=== PATIENT | male | born 1970 | race Caucasian/White ===

== ENCOUNTER 2021-06-17 09:07 | Emergency (ER) | payer OTHER, SELFPAY ==
[2021-06-17 09:32] VITALS: BP 132/76; PULSE 94; RESP 18; TEMP 36.5; O2SAT 98; BMI 27.6
--- NOTE | 2021-06-17 10:11 | ED_ITS ---
HPI - Ear Problem General Chief complaint: Ear Problems Stated complaint: ear pain Time Seen by Provider: 06/17/21 09:46 Source: patient Mode of arrival: ambulatory History of Present Illness HPI Narrative: 50-year-old male with past medical history diabetes, bilateral ear surgery as a child insomnia, hyperlipidemia, smoker, presenting to the ED complaining of right ear pain, and feeling like its blocked x few days. Denies drainage from ear, fever, chills, sore throat, cough MD Complaint: ear pain Location: right ear Duration: constant Severity: mild Related Data Home Medications Medication Instructions Recorded Confirmed glimepiride 1 mg tablet 1 mg PO QAM 06/27/20 05/20/21 Previous Rx's Medication Instructions Recorded cholecalciferol (vitamin D3) 50 50 mcg PO DAILY #90 tab 10/05/20 mcg (2,000 unit) tablet (Vitamin D3) gabapentin 800 mg tablet 800 mg PO TID #270 tab 10/18/20 albuterol sulfate 90 mcg/actuation 2 puff PO QID PRN #8.5 g 04/07/21 aerosol inhaler metformin 500 mg tablet,extended 1,000 mg PO BID 30 Days #120 tab 04/24/21 release 24 hr atorvastatin 10 mg tablet 10 mg PO DAILY 90 Days #90 tab 05/14/21 oxycodone-acetaminophen 5 mg-325 See Rx Instructions PO .COMPLEX 05/31/21 mg tablet PRN 30 Days #10 tab amoxicillin 875 mg-potassium 1 tab PO Q12H 7 Days #14 tab 06/17/21 clavulanate 125 mg tablet (Augmentin) ofloxacin 0.3 % ear drops 10 drp OTIC (EARS) DAILY 7 Days ml 06/17/21 Allergies Allergy/AdvReac Type Severity Reaction Status Date / Time Motrin Allergy Unknown stomach Verified 05/20/21 14:31 pain ibuprofen [From MOTRIN] AdvReac Unknown ABD PAIN Verified 05/20/21 14:31 Review of Systems Review of Systems: Constitutional: No Fever, No Chills ENT/Mouth: + Ear Pain, No Nasal Congestion, No Sinus Pain, No Hoarseness, No sore throat, No Rhinorrhea, No Swallowing Difficulty Cardiovascular: No Chest Pain, No SOB Respiratory: No Cough, No Sputum Gastrointestinal: No Nausea, No Vomiting, No Diarrhea, No Abdominal pain Musculoskeletal: No joint pain, No Myalgias, No Joint Swelling Skin: No Skin Lesions, No rash Neuro: No Weakness Yes all other systems are reviewed and are negative [facility] Past Medical History Attestation statement: The following information was validated with the patient. Medical History Diabetes mellitus Insomnia Lumbar degenerative disc disease Mixed dyslipidemia Overweight (BMI 25.0-29.9) Right hydrocele Smoker Upper back pain on right side Vitamin D deficiency Surgical History History of ear surgery History of extraction of renal calculus History of hydrocelectomy History of surgery Family History Family History Father Medical history unknown Mother Cancer Social History Social History Housing: Apartment Alcohol intake: former Patient Tobacco Use Status: Current everyday Tobacco user Cigarette Packs Per Day: 1 Cigarettes Per Day: 20 Second Hand Smoke Exposure: Yes Advance Directives: No Advance Directives Information Provided: No service: No Current occupational status: retired Physical Exam Vital Signs: Vital Signs: Last Vital Signs Temp 97.7 F 06/17/21 09:32 Pulse 94 06/17/21 09:32 Resp 18 06/17/21 09:32 BP 132/76 06/17/21 09:32 Pulse Ox 98 06/17/21 09:32 BMI result Body Mass Index 27.6 Const: General: cooperative, healthy appearing and no acute distress Orientation/consciousness: patient oriented x3 Limitations: no limitations HENMT: Other: white debris in right ear canal with cerumen Head: Yes normal to inspection Ears: external ears normal, mastoids normal, external ear abnormal auricular tenderness on the right, TM abnormal dull on the right and unable to visualize TM on the right (Due to cerumen impaction) and on the left (Due to cerumen impaction) General nose exam: Normal external nose present Face and sinus: Yes normal facial exam Mouth: Normal oral and palatal mucosa present Throat: Yes posterior oropharynx normal, Yes tonsils normal, Yes uvula midline, No abnormal tonsil and No uvular edema Eyes: General: appearance normal, both eyes and all related structures EOM: EOMs intact bilaterally Neck: Neck: Yes normal visual inspection, Yes no lymphadenopathy, Yes no meningeal signs, Yes trachea midline and Yes supple Resp: Effort & Inspection: normal respiratory effort and no respiratory distress Auscultation: clear to auscultation bilaterally Cardio: Rate: regular rate Heart sounds: S1 normal heart sound present and S2 normal heart sound present Skin: Rashes: no rashes Wounds: no wounds Neuro: General: patient oriented x3 and no meningeal signs Gait exam (Neuro): Normal gait present Extrem: General: Yes normal to inspection MDM - Ear MDM Narrative Medical decision making narrative: 50-year-old male with past medical history diabetes, bilateral ear surgery as a child insomnia, hyperlipidemia, smoker, presenting to the ED complaining of right ear pain, and feeling like its blocked x few days. On exam vital signs stable, NAD/nontoxic appearing. Concern for otitis media and otitis externa versus fungal infection. Low concern for malign ant otitis externa. Mastoids normal Right TM irrigated Look treat with p.o. Augmentin and ofloxacin drops and have patient follow-up with ENT Medical Records Attestation: I reviewed the patient's medical records. Lab Data Attestation: I reviewed the patient's lab results. Discharge Plan Discharge Clinical Impression: Otitis media Qualifiers: Chronicity: acute Laterality: right Recurrence: not specified as recurrent Patient Disposition: Home, Self-Care Instructions: How to Use Ear Drops (ED), Ear Infection (ED) Additional Instructions: Augmentin is an oral antibiotic, please take as prescribed. In addition use ofloxacin antibiotic ear drops as prescribed. Follow-up with an ENT specialist. If your symptoms persist or worsen you have drainage from ear, develops fever or chills please return to the emergency department Prescriptions: New ofloxacin 0.3 % drops 10 drp otic (ears) DAILY 7 Days RF: 0 amoxicillin-pot clavulanate [Augmentin] 875-125 mg tablet 1 tab PO Q12H 7 Days Qty: 14 RF: 0 No Action cholecalciferol (vitamin D3) [Vitamin D3] 50 mcg (2,000 unit) tablet 50 mcg PO DAILY Qty: 90 RF: 2 gabapentin 800 mg tablet 800 mg PO TID Qty: 270 RF: 3 albuterol sulfate 90 mcg/actuation HFA aerosol inhaler 2 puff PO QID PRN (Reason: for wheezing) Qty: 8.5 RF: 3 metformin 500 mg tablet extended release 24 hr 1,000 mg PO BID 30 Days Qty: 120 RF: 3 atorvastatin 10 mg tablet 10 mg PO DAILY 90 Days Qty: 90 RF: 1 oxycodone-acetaminophen 5-325 mg tablet See Rx Instructions PO .COMPLEX PRN (Reason: pain) 30 Days Qty: 10 RF: 0 glimepiride 1 mg tablet 1 mg PO QAM RF: 0 Referrals: Cholo Chen [Physician] - 3 days Interventions: ED Discharge Assessment Last Done: 06/17/21 10:15
== END 2021-06-17 10:20 | disposition home or self-care (01) ==
PROVIDERS: Emergency Provider Emergency Medicine; PCP Internal Medicine
DX: H66.91 Otitis media, unspecified, right ear (principal); E11.9 Type 2 diabetes mellitus without complications; E78.5 Hyperlipidemia, unspecified; F17.200 Nicotine dependence, unspecified, uncomplicated; Z79.02 Long term (current) use of antithrombotics/antiplatelets; Z79.899 Other long term (current) drug therapy
CPT/HCPCS: 99283

== ENCOUNTER 2021-09-20 07:27 | Emergency (ER) | payer OTHER, SELFPAY ==
[2021-09-20 07:33] VITALS: BP 139/85; PULSE 106; RESP 18; TEMP 36.5; O2SAT 97; BMI 27.7
--- NOTE | 2021-09-20 08:19 | ED_ITS ---
HPI - Skin/Abscess/Foreign Bdy General Chief complaint: Skin/Abscess/Foreign Body Stated complaint: painful growth on back of head Time Seen by Provider: 09/20/21 08:05 Source: patient Mode of arrival: ambulatory Limitations: no limitations History of Present Illness HPI narrative: 50-year-old male history of diabetes brought in for possible abscess on the back of his scalp. Abscess on left side back of his scalp for the past 5 days, seen by his PCP started him on Bactrim, patient returned today for no improvement. No fever or chills. No neck stiffness, no photophobia. Related Data Home Medications Medication Instructions Recorded Confirmed glimepiride 1 mg tablet 1 mg PO QAM 06/27/20 09/17/21 Previous Rx's Medication Instructions Recorded cholecalciferol (vitamin D3) 50 50 mcg PO DAILY #90 tab 10/05/20 mcg (2,000 unit) tablet (Vitamin D3) gabapentin 800 mg tablet 800 mg PO TID #270 tab 10/18/20 atorvastatin 10 mg tablet 10 mg PO DAILY 90 Days #90 tab 05/14/21 ofloxacin 0.3 % ear drops 10 drp OTIC (EARS) DAILY 7 Days ml 06/17/21 metformin 500 mg tablet,extended 1,000 mg PO BID 30 Days #120 tab 07/24/21 release 24 hr nystatin 100,000 unit/gram topical 1 appl TOPICAL TID 10 Days #60 g 07/24/21 powder albuterol sulfate 90 mcg/actuation 2 puff PO QID PRN #8.5 g 08/08/21 aerosol inhaler oxycodone-acetaminophen 5 mg-325 See Rx Instructions PO .COMPLEX 08/30/21 mg tablet PRN 30 Days #10 tab sulfamethoxazole 800 1 tab PO Q12H 10 Days #20 tab 09/17/21 mg-trimethoprim 160 mg tablet (Bactrim DS) cephalexin 500 mg capsule 500 mg PO Q8H 7 Days #21 cap 09/20/21 Allergies Allergy/AdvReac Type Severity Reaction Status Date / Time No Known Allergies Allergy Verified 09/20/21 07:33 Review of Systems Review of Systems: All other systems are reviewed and are negative Constitutional: Reports as per HPI and Reports no additional constitutional complaints Eyes: Reports as per HPI and Reports no additional eye complaints Reports system reviewed and no additional complaints, except as documented Cardiovascular: Reports as per HPI and Reports no additional cardiovascular complaints Respiratory: Reports as per HPI and Reports no additional respiratory complaints Gastrointestinal: Reports as per HPI and Reports no additional gastrointestinal complaints Genitourinary: Reports no additional female genitourinary complaints Musculoskeletal: Reports no additional musculoskeletal complaints Skin/Breast: Reports system reviewed and no additional complaints, except as docu Psychiatric: Reports no additional psychiatric complaints Endocrine: Reports no additional endocrine complaints Hematologic/Lymphatic: Reports no additional hematologic/lymphatic complaints Allergic/Immunologic: Reports no additional allergic/immunologic complaints Reports system reviewed and no additional complaints, except as documented and Reports Abnormal speech present [facility] Past Medical History Medical History Diabetes mellitus Insomnia Lumbar degenerative disc disease Mixed dyslipidemia Overweight (BMI 25.0-29.9) Right hydrocele Smoker Upper back pain on right side Vitamin D deficiency Surgical History History of ear surgery History of extraction of renal calculus History of hydrocelectomy History of surgery Family History Family History Father Medical history unknown Mother Cancer Social History Social History Housing: Apartment Alcohol intake: former Patient Tobacco Use Status: Current everyday Tobacco user Cigarettes Per Day: 4 Second Hand Smoke Exposure: Yes Advance Directives: Yes Advance Directives Information Provided: Yes Advance Directives on File: No service: No Current occupational status: retired Physical Exam Vital Signs: Vital Signs: Last Vital Signs Temp 97.7 F 09/20/21 07:33 Pulse 106 H 09/20/21 07:33 Resp 18 09/20/21 07:33 BP 139/85 09/20/21 07:33 Pulse Ox 97 09/20/21 07:33 BMI result Body Mass Index 27.7 Vital signs have been reviewed as appeared to be correct. Blood pressure normal. Heart rate elevated. Respiration rate normal. Temperature normal. Oxygen saturation normal. Appearance: Alert. Oriented X3. No acute distress. Head: Normal external exam. Normocephalic. Atraumatic. No Contreras signs noted. No raccoon eyes noted Eyes: PERRLA. EOMI. Conjunctiva and sclera normal. Eyelids normal. ENT: TM's Normal. Pharynx normal. Uvula midline. Moist mucous membranes. No trismus noted. No drooling noted. No muffled voice noted. Neck: Normal inspection. Neck supple. FROM. No adenopathy. Thyroid Normal. No meningeal signs. No neck mass noted. CVS: Normal heart rate and rhythm. Heart sound normal. No murmurs noted. Pulses normal throughout. Respiratory: No respiratory distress. Painless inspiration. Breath sounds normal. No wheezes/rales/rhonchi noted. Chest nontender. No accessory muscle usage noted or decreased air movement noted. Abdomen: Soft and nontender. Bowel sounds normal in all 4 quadrants. No distention noted. No organomegaly noted. No visible injury noted. Back: No CVA tenderness. Full range of motion noted. Skin: Skin warm and dry. Normal skin color. 3 x 2 cm area of fluctuation at the left occipital area of the scalp. No discharge, no cellulitis. Extremities: No lower extremity edema. Extremities exhibit normal range of motion. Extremities nontender. Neuro: Oriented X 3. Cranial nerve exam: II-XII are grossly intact No motor deficit. No sensory deficit. Reflexes normal. Course Course Course Narrative: Left scalp occipital abscess. Status post I&D, continue with Bactrim and will add Keflex. Procedures Abscess I/D Site: scalp (Left occipital) Side (if applicable): left Local Anesthetic: lidocaine 1% Amount of anesthesia used (mL): 5 Amount of fluid expressed (mL): 5 Sent for culture/gram staining?: No Irrigation: No Packing used?: none Discharge Plan Discharge Clinical Impression: Abscess Patient Disposition: Home, Self-Care Instructions: Abscess Incision and Drainage (DC) Additional Instructions: Return to the emergency department in 2 days to recheck your abscess and wound. Prescriptions: New cephalexin 500 mg capsule 500 mg PO Q8H 7 Days Qty: 21 0RF No Action cholecalciferol (vitamin D3) [Vitamin D3] 50 mcg (2,000 unit) tablet 50 mcg PO DAILY Qty: 90 2RF gabapentin 800 mg tablet 800 mg PO TID Qty: 270 3RF atorvastatin 10 mg tablet 10 mg PO DAILY 90 Days Qty: 90 1RF metformin 500 mg tablet extended release 24 hr 1,000 mg PO BID 30 Days Qty: 120 3RF Rx Instructions: 2 tablets Orally twice a day albuterol sulfate 90 mcg/actuation HFA aerosol inhaler 2 puff PO QID PRN (Reason: for wheezing) Qty: 8.5 3RF oxycodone-acetaminophen 5-325 mg tablet See Rx Instructions PO .COMPLEX PRN (Reason: pain) 30 Days Qty: 10 0RF Rx Instructions: 1 tablet orally 1 to 2 times a day as needed only for severe pain ofloxacin 0.3 % drops 10 drp otic (ears) DAILY 7 Days 0RF glimepiride 1 mg tablet 1 mg PO QAM 0RF nystatin 100,000 unit/gram powder 1 appl topical TID 10 Days Qty: 60 3RF sulfamethoxazole-trimethoprim [Bactrim DS] 800-160 mg tablet 1 tab PO Q12H 10 Days Qty: 20 0RF Referrals: Aung Astorga MD [Primary Care Provider] - 2 days
== END 2021-09-20 09:37 | disposition home or self-care (01) ==
PROVIDERS: Emergency Provider Emergency Medicine; PCP Internal Medicine
DX: L02.811 Cutaneous abscess of head [any part, except face] (principal); E11.9 Type 2 diabetes mellitus without complications
CPT/HCPCS: 10060; 99283; 99284

== ENCOUNTER 2022-01-26 07:00 | Emergency (ER) | payer OTHER, SELFPAY ==
[2022-01-26 07:57] VITALS: BP 120/80; PULSE 98; RESP 17; TEMP 36.7; O2SAT 96; BMI 29.1
--- NOTE | 2022-01-26 08:56 | ED.GENADULT ---
HPI - General Adult General Chief complaint: Skin/Abscess/Foreign Body Stated complaint: Lump under both armpits Time Seen by Provider: 01/26/22 08:37 Source: patient Mode of arrival: ambulatory Limitations: no limitations History of Present Illness HPI narrative: 51-year-old male presents to ED for bilateral axilla red painful lumps for the past 2-3 days. Patient states no fever, chills, drainage, or any recent trauma to the area. Denies any IV drug use. Related Data Home Medications Medication Instructions Recorded Confirmed glimepiride 1 mg tablet 1 mg PO QAM 06/27/20 09/17/21 Previous Rx's Medication Instructions Recorded gabapentin 800 mg tablet 800 mg PO TID #270 tabs 10/18/20 ofloxacin 0.3 % ear drops 10 drp otic (ears) DAILY 7 days 06/17/21 nystatin 100,000 unit/gram topical 1 appl topical TID 10 days #60 07/24/21 powder grams sulfamethoxazole 800 1 tab PO Q12H 10 days #20 tabs 09/17/21 mg-trimethoprim 160 mg tablet (Bactrim DS) cholecalciferol (vitamin D3) 50 50 mcg PO DAILY #90 tabs 10/10/21 mcg (2,000 unit) tablet (Vitamin D3) metformin 500 mg tablet,extended 1,000 mg PO BID 30 days #120 tabs 10/16/21 release 24 hr atorvastatin 10 mg tablet 10 mg PO DAILY #90 tabs 11/04/21 albuterol sulfate 90 mcg/actuation 2 puff PO QID PRN for wheezing 11/19/21 aerosol inhaler #8.5 grams cephalexin 500 mg capsule 500 mg PO Q8H 7 days #21 caps 12/25/21 oxycodone-acetaminophen 5 mg-325 See Rx Instructions PO .COMPLEX 12/27/21 mg tablet PRN pain 30 days #10 tabs cephalexin 500 mg capsule 500 mg PO QID 7 days #28 caps 01/26/22 doxycycline hyclate 100 mg capsule 100 mg PO BID 7 days #14 caps 01/26/22 Allergies Allergy/AdvReac Type Severity Reaction Status Date / Time ibuprofen [From Motrin IB] Allergy Mild Nausea and Verified 12/25/21 15:08 Vomiting Review of Systems Review of Systems: Bilateral axillary red lumps. Yes all other systems are reviewed and are negative PMFSH Past Medical History Medical History Diabetes mellitus Insomnia Lumbar degenerative disc disease Mixed dyslipidemia Overweight (BMI 25.0-29.9) Right hydrocele Smoker Upper back pain on right side Vitamin D deficiency Surgical History History of ear surgery History of extraction of renal calculus History of hydrocelectomy History of surgery Family History Family History Father Medical history unknown Mother Cancer Social History Social History Housing: Apartment Alcohol intake: former Patient Tobacco Use Status: Current everyday Tobacco user Cigarettes Per Day: 4 Second Hand Smoke Exposure: Yes Advance Directives: No Advance Directives Information Provided: Yes service: No Current occupational status: retired Physical Exam ED Vital Signs: Vital Signs - 24 hr 01/26/22 07:57 Temperature 98.0 F Pulse Rate 98 Respiratory Rate 17 Blood Pressure 120/80 Pulse Oximetry 96 Oxygen Delivery Method Nasal Cannula BMI result Body Mass Index 29.1 Const General: cooperative, healthy appearing, comfortable, no acute distress, well developed, alert, awake and Physically active Orientation/consciousness: patient oriented x3 HENMT Head: Yes normal to inspection, Yes No palpable skull fracture present, Yes normocephalic, Yes atraumatic and No abrasion Eyes General: appearance normal, both eyes and all related structures Neck Neck: Yes normal visual inspection, Yes full ROM, Yes no lymphadenopathy, Yes no meningeal signs, Yes trachea midline, Yes supple, No anterior neck swelling and No tender Chest Chest palpation & inspection: normal inspection of the chest and normal palpation of entire chest wall Chest/axillae images: 1. Red tender non fluctuant mass. Negative for pus drainage or foul odor. Bedside ultrasound shows very small pus collection. 2. Red tender nonfluctuant mass. Negative for pus drainage or foul odor. Bedside ultrasound shows no pus collection but more cellulitic wall changes. Resp Effort & Inspection: normal respiratory effort and able to speak in complete sentences Auscultation: clear to auscultation bilaterally Cardio Jugular venous distension: no JVD Heart sounds: S1 normal heart sound present and S2 normal heart sound present GI Inspection: Yes normal to inspection and No abdominal wall ecchymosis Palpation (GI): Soft to palpation, not firm, nontender, no guarding and not rigid General: No CVA tenderness and Yes no CVA tenderness Back/Spine/Pelvis Back: no CVA tenderness, No CVA tenderness and No back tenderness Skin General skin exam: no rashes or lesions noted and elasticity normal Neuro General: patient oriented x3, gait normal, no meningeal signs and CN's II-XI intact bilaterally Cranial nerves: Yes CN's II-XII intact bilaterally Extrem General: Yes normal to inspection and Yes full ROM Psych Appearance: grossly normal, well kempt and not disheveled Course Course Course Narrative: Early abscess/cellulitis. Reevaluation(s) Reevaluation #1: Presently no indication for left axillary cellulitis and early abscess. For right axillary early abscess due to being small patient preferred to be treated with antibiotics. Patient informed to be compliant with antibiotics and recommend warm compress on both axillary for Zeeshan a day for 15 minutes. Time: 09:05 Medical Decision Making [facility] Narrative Medical decision making narrative: early abscess/cellulitis Discharge Plan Discharge Clinical Impression: Abscesses of both axillae Patient Disposition: Home, Self-Care Instructions: Abscess (ED) Additional Instructions: presently he had no incision and drainage definitely needed. Recommend warm compress 4 times a day for 15 minutes in both axillary and also antibiotics. Return to the ED immediately for increased swelling, increase redness, worsening pain, profuse drainage, foul odor, intractable fever, chills, shortness of breath, chest pain, or any other concerning symptoms. Please follow up with your PCP. Prescriptions: New cephalexin 500 mg capsule 500 mg PO QID 7 Days Qty: 28 0RF doxycycline hyclate 100 mg capsule 100 mg PO BID 7 Days Qty: 14 0RF No Action gabapentin 800 mg tablet 800 mg PO TID Qty: 270 3RF cholecalciferol (vitamin D3) [Vitamin D3] 50 mcg (2,000 unit) tablet 50 mcg PO DAILY Qty: 90 2RF metformin 500 mg tablet extended release 24 hr 1,000 mg PO BID 30 Days Qty: 120 3RF Rx Instructions: 2 tablets Orally twice a day atorvastatin 10 mg tablet 10 mg PO DAILY Qty: 90 0RF albuterol sulfate 90 mcg/actuation HFA aerosol inhaler 2 puff PO QID PRN (Reason: for wheezing) Qty: 8.5 3RF oxycodone-acetaminophen 5-325 mg tablet See Rx Instructions PO .COMPLEX PRN (Reason: pain) 30 Days Qty: 10 0RF Rx Instructions: 1 tablet orally 1 to 2 times a day as needed only for severe pain ofloxacin 0.3 % drops 10 drp otic (ears) DAILY 7 Days 0RF glimepiride 1 mg tablet 1 mg PO QAM nystatin 100,000 unit/gram powder 1 appl topical TID 10 Days Qty: 60 3RF sulfamethoxazole-trimethoprim [Bactrim DS] 800-160 mg tablet 1 tab PO Q12H 10 Days Qty: 20 0RF cephalexin 500 mg capsule 500 mg PO Q8H 7 Days Qty: 21 0RF Stand Alone Forms: Work/School Release Interventions: ED Discharge Assessment Last Done: 01/26/22 09:52 Discharge Date/Time: 01/26/22 09:53 Print Language: Mongolian
== END 2022-01-26 09:53 | disposition home or self-care (01) ==
PROVIDERS: Emergency Provider Emergency Medicine; PCP Internal Medicine
DX: L02.411 Cutaneous abscess of right axilla (principal); L02.412 Cutaneous abscess of left axilla; Z79.899 Other long term (current) drug therapy; Z87.891 Personal history of nicotine dependence
CPT/HCPCS: 99283

== ENCOUNTER 2022-09-16 07:38 | Outpatient (REF) | payer OTHER, SELFPAY ==
[2022-09-16 07:51] LABS: MANUAL DIFF FLAG NO
[2022-09-16 08:17] LABS: Basophils Absolute Auto 0.1 X10*3/uL (0.0-0.2); Basophils Percent Auto 0.3 % (0-2); Eosinophils Absolute Auto 0.2 X10*3/uL (0.0-0.4); Eosinophils Percent Auto 1.3 % (0-4); Hemoglobin 13.8 g/dl (14.0-18.0); Imm Gran Abs Auto 0.08 X10*3/uL (0.00-0.03); Imm Gran Pct Auto 0.4 % (0.0-0.4); Lymphocytes Percent Auto 16.3 % (20-40); Mean Corpuscular HGB Conc 32.9 g/dl (31.0-36.0); Mean Corpuscular Hemoglobin 26.7 pg (27.0-33.0); Mean Corpuscular Volume 81.4 fL (80.0-98.0); Mean Platelet Volume 9.6 fL (9.4-12.4); Monocytes Absolute Auto 1.4 X10*3/uL (0.1-1.2); Monocytes Percent Auto 7.5 % (2-11); Neutrophils Absolute Auto 13.8 x10*3/uL (2.0-8.3); Neutrophils Percent Auto 74.2 % (45-73); Platelet Count 373 X10*3/uL (160-400); Red Blood Count 5.16 X10*6/uL (4.60-5.80); White Blood Count 18.6 X10*3/uL (4.8-10.8)
[2022-09-16 08:27] LABS: Appearance Urine Clear; Color Urine Yellow; Glucose Urine UA Negative (Negative); Leukocyte Esterase Urine Negative (Negative); Nitrite Urine Negative (Negative); Specific Gravity - Urine 1.025 (1.005-1.025); Urine Blood Negative (Negative); Urine Ketones Trace mg/dL (Negative); Urine Protein Negative (Neg-Trace)
[2022-09-16 08:47] LABS: Alanine Aminotransferase 15 U/L (0-40); Albumin Level 4.2 g/dL (3.5-5.0); Alkaline Phosphatase 70 U/L (39-117); Anion Gap 15 (12-20); Aspartate Amino Transferase 15 U/L (5-37); Bilirubin Total 0.3 mg/dL (0.0-1.0); Blood Urea Nitrogen 14 mg/dL (9-16); Calcium 9.2 mg/dL (8.4-10.2); Carbon Dioxide 22 mmol/L (22-29); Chloride 107 mmol/L (96-108); Cholesterol 158 mg/dL; Estimated Glomerular Filt Rate > 60; Glucose Fasting 158 mg/dL (60-99); HDL Cholesterol 24 mg/dL; LDL Cholesterol Calculated 105 mg/dl; Potassium 4.5 mmol/L (3.3-5.1); Sodium 139 mmol/L (135-145); Triglycerides 147 mg/dL
[2022-09-16 08:53] LABS: Creatinine Urine 173.71 mg/dL
[2022-09-16 09:03] LABS: TSH reflex Free T4 0.72 uIU/mL (0.32-4.0); Vitamin D 25-OH Total 35.7 ng/mL (>30)
== END 2022-09-16 07:39 | disposition home or self-care (01) ==
LOC: HO.LAB 07:38
PROVIDERS: PCP Internal Medicine; Visit Provider Internal Medicine
DX: E78.00 Pure hypercholesterolemia, unspecified (principal); E55.9 Vitamin D deficiency, unspecified; R30.0 Dysuria; E11.9 Type 2 diabetes mellitus without complications; I10 Essential (primary) hypertension
CPT/HCPCS: 36415; 80053; 80061; 81003; 82043; 82306; 84443; 85025

== ENCOUNTER 2022-10-19 14:23 | Emergency (ER) | payer OTHER, SELFPAY ==
[2022-10-19 14:25] VITALS: BP 124/73; PULSE 104; RESP 18; TEMP 36.4; O2SAT 96; BMI 27.1
--- NOTE | 2022-10-19 14:30 | ED.GENADULT ---
HPI - General Adult General Chief complaint: Ear Problems Stated complaint: L ear pain Time Seen by Provider: 10/19/22 14:30 Source: patient Mode of arrival: ambulatory Limitations: no limitations History of Present Illness HPI narrative: 51 yold male presents to the ED for left ear pain Related Data Previous Rx's Medication Instructions Recorded gabapentin 800 mg tablet 800 mg PO TID #270 tabs 10/18/20 nystatin 100,000 unit/gram topical 1 appl topical TID 10 days #60 07/24/21 powder grams albuterol sulfate 90 mcg/actuation 2 puff PO QID PRN for wheezing 11/19/21 aerosol inhaler #8.5 grams blood sugar diagnostic #100 ea 04/18/22 blood-glucose meter #1 ea 04/18/22 lancets 30 gauge (BD Ultra-Fine II #100 ea 04/18/22 Lancets) cholecalciferol (vitamin D3) 50 50 mcg PO DAILY #90 tabs 04/24/22 mcg (2,000 unit) tablet (Vitamin D3) sitagliptin phosphate 100 mg 100 mg PO DAILY #90 tabs 08/08/22 tablet (Januvia) glimepiride 2 mg tablet 2 mg PO QAM 90 days #90 tabs 09/11/22 oxycodone-acetaminophen 5 mg-325 See Rx Instructions PO .COMPLEX 09/25/22 mg tablet PRN pain 30 days #10 tabs metformin 500 mg tablet,extended 1,000 mg PO BID 30 days #120 tabs 10/13/22 release 24 hr atorvastatin 10 mg tablet 10 mg PO DAILY #90 tabs 10/16/22 [id number] 3.3 4 drp otic (ear) left QID 10 days 10/19/22 mg-3 mg-10 mg-0.5 mg/mL ear #10 mL drops,susp (Cortisporin-TC) Allergies Allergy/AdvReac Type Severity Reaction Status Date / Time ibuprofen [From Motrin IB] Allergy Mild Nausea and Verified 09/11/22 09:21 Vomiting Review of Systems Review of Systems: Left ear pain Yes all other systems are reviewed and are negative PMFSH Past Medical History Medical History Diabetes mellitus Insomnia Lumbar degenerative disc disease Mixed dyslipidemia Overweight (BMI 25.0-29.9) Right hydrocele Smoker Upper back pain on right side Vitamin D deficiency Surgical History History of ear surgery History of extraction of renal calculus History of hydrocelectomy History of surgery Family History Family History Father Medical history unknown Mother Cancer Social History Social History Housing: Apartment Alcohol intake: former Patient Tobacco Use Status: Current everyday Tobacco user Tobacco use type: Cigarette Cigarettes Per Day: 4 e-Cigarette/Vaping Use: Never Used Second Hand Smoke Exposure: Yes Advance Directives: No Advance Directives Information Provided: No service: No Current occupational status: retired Cognitive needs: No Hearing needs: No Vision needs: No Physical Exam ED Vital Signs: Vital Signs - 24 hr 10/19/22 14:25 Temperature 97.6 F Pulse Rate 104 H Respiratory Rate 18 Blood Pressure 124/73 Pulse Oximetry 96 Oxygen Delivery Method Room Air BMI result Body Mass Index 27.1 Course Course Course Narrative: Left ear exam shows otits externa Medical Decision Making Medical Decision Making [facility] Narrative: 51 yold male presents to the ED for left ear pain Discharge Plan Discharge Clinical Impression: Otitis externa Patient Disposition: Home, Self-Care Instructions: Otitis Externa (ED), Otitis Externa (DC) Additional Instructions: Presents to the ED for worsening left ear pain, ear discharge, headache, redness/swelling in front/behind ear, weakness, or any other concerning symptoms. please follow up with pCP. Prescriptions: New Cortisporin-TC 3.3-3-10-0.5 mg/mL drops,suspension 4 drp otic (ear) left QID 10 Days Qty: 10 0RF No Action gabapentin 800 mg tablet 800 mg PO TID Qty: 270 3RF albuterol sulfate 90 mcg/actuation HFA aerosol inhaler 2 puff PO QID PRN (Reason: for wheezing) Qty: 8.5 3RF (DME) blood sugar diagnostic Strip See Rx Instructions .ROUTE .MEDSUPPLY Qty: 100 1RF Rx Instructions: bid (DME) blood-glucose meter Kit See Rx Instructions .ROUTE .MEDSUPPLY Qty: 1 0RF Rx Instructions: test twice a day (DME) lancets [BD Ultra-Fine II Lancets] 30 gauge misc See Rx Instructions .ROUTE .MEDSUPPLY Qty: 100 1RF Rx Instructions: twice a day cholecalciferol (vitamin D3) [Vitamin D3] 50 mcg (2,000 unit) tablet 50 mcg PO DAILY Qty: 90 2RF Januvia 100 mg tablet 100 mg PO DAILY Qty: 90 1RF oxycodone-acetaminophen 5-325 mg tablet See Rx Instructions PO .COMPLEX PRN (Reason: pain) 30 Days Qty: 10 0RF Rx Instructions: 1 tablet orally 1 to 2 times a day as needed only for severe pain metformin 500 mg tablet extended release 24 hr 1,000 mg PO BID 30 Days Qty: 120 3RF Rx Instructions: 2 tablets Orally twice a day atorvastatin 10 mg tablet 10 mg PO DAILY Qty: 90 0RF nystatin 100,000 unit/gram powder 1 appl topical TID 10 Days Qty: 60 3RF glimepiride 2 mg tablet 2 mg PO QAM 90 Days Qty: 90 1RF Stand Alone Forms: Work/School Release Interventions: ED Discharge Assessment Last Done: 10/19/22 15:14 Discharge Date/Time: 10/19/22 15:15 Print Language: Grenadian
== END 2022-10-19 15:15 | disposition home or self-care (01) ==
PROVIDERS: Emergency Provider Emergency Medicine; PCP Internal Medicine
DX: H60.92 Unspecified otitis externa, left ear (principal); H92.02 Otalgia, left ear; Z79.899 Other long term (current) drug therapy; F17.210 Nicotine dependence, cigarettes, uncomplicated; Z71.6 Tobacco abuse counseling
CPT/HCPCS: 99282

== ENCOUNTER 2023-06-09 09:07 | Outpatient (AMB) | payer OTHER, SELFPAY ==
--- NOTE | 2023-06-09 09:58 | AM.OFFWIN_ITS ---
Intake Vital Signs 06/09/23 10:04 Height 5 ft 11 in Weight 200 lb BMI 27.9 BP 112/60 Blood Pressure Location Lt brachial Position Sitting Pulse 91 Pulse Source Pulse Oximeter Temp 97.7 F Temp Source Oral Pulse Oximetry (%) 96 Oxygen Delivery Method Room Air Intake Visit Reasons: Est/ear pain(lobby) Intake Note: Pt is here today c/o Rt ear pain x3days Patient Tobacco Use Status: Current everyday Tobacco user Allergies ibuprofen [From Motrin IB] Allergy (Mild, Verified 06/09/23 10:28) Nausea and Vomiting Medication List - Last Reconciled 06/09/23 by Michael Currie MD albuterol sulfate 90 mcg/actuation 2 puffs PO QID PRN atorvastatin 10 mg PO DAILY blood sugar diagnostic bid blood-glucose meter test twice a day cholecalciferol (vitamin D3) (Vitamin D3) 50 mcg PO DAILY gabapentin 800 mg PO TID glimepiride 2 mg PO QAM 90 days lancets (BD Ultra-Fine II Lancets) twice a day metformin ER 1,000 mg (2 x 500 mg) PO BID nystatin 1 appl topical TID 10 days oxycodone-acetaminophen 5-325 mg 1 tablet orally 1 to 2 times a day as needed only for severe pain 30 days sitagliptin phosphate (Januvia) 100 mg PO DAILY HPI Est/ear pain(lobby) HPI Details 52-year-old male presents to the office for a sick visit. Patient is complaining of right ear pain. Throbbing in nature. No discharge from the ear. Low-grade fever. Patient reports he has had 3 ear infections this year. [facility]LY [facility] Medical History Diabetes mellitus Insomnia Lumbar degenerative disc disease Mixed dyslipidemia Overweight (BMI 25.0-29.9) Right hydrocele Smoker Upper back pain on right side Vitamin D deficiency Surgical History History of ear surgery History of extraction of renal calculus History of hydrocelectomy History of surgery Family History Father Medical history unknown Mother Cancer Housing: Apartment Alcohol intake: former Patient Tobacco Use Status: Current everyday Tobacco user Tobacco use type: Cigarette Cigarettes Per Day: 7 e-Cigarette/Vaping Use: Never Used Second Hand Smoke Exposure: Yes service: No Current occupational status: retired Cognitive needs: No Hearing needs: No Vision needs: No Physical Exam Vital Signs: Last Vital Signs Temp 97.7 F 06/09/23 10:04 Pulse 91 06/09/23 10:04 BP 112/60 06/09/23 10:04 Pulse Ox 96 06/09/23 10:04 Oxygen Delivery Method Room Air 06/09/23 10:04 BMI result Body Mass Index 27.9 Const General: cooperative and healthy appearing Nutritional Appearance: well nourished Orientation/consciousness: patient oriented x3 Limitations: no limitations HEENT Other: Right ear: Ear canal is congested, wax is present. Tympanic membrane is red. Head: Yes normal to inspection Eyes General: appearance normal, both eyes and all related structures Neck Neck: Yes normal visual inspection Chest Chest palpation & inspection: normal palpation of entire chest wall Resp Effort & Inspection: normal respiratory effort Neuro General: patient oriented x3 Assessment & Plan Assessment & Plan (1) Otitis media of right ear: Code(s): H66.91 - Otitis media, unspecified, right ear Qualifiers: Otitis media type: serous Chronicity: acute Recurrence: non-recurrent Qualified Code(s): H65.01 - Acute serous otitis media, right ear Plan: Antibiotic and meloxicam called in. Patient was advised to follow-up with PCP to get a ENT appointment to determine if there is a cause for his recurrent ear infections. Coding Level of Care Code Est Pt Level 3 (71319) Diagnoses Non-recurrent acute serous otitis media of right ear H65.01 Otitis media type: serous Chronicity: acute Recurrence: non-recurrent
[2023-06-09 10:04] VITALS: BP 112/60; PULSE 91; TEMP 36.5; O2SAT 96; BMI 27.9
== END 2023-06-09 10:55 | disposition home or self-care (01) ==
PROVIDERS: PCP Internal Medicine; Visit Provider Internal Medicine
DX: H65.01 Acute serous otitis media, right ear (principal)
CPT/HCPCS: 99213

== ENCOUNTER 2023-06-11 09:25 | Outpatient (AMB) | payer OTHER, SELFPAY ==
[2023-06-11 09:28] VITALS: BP 118/70; PULSE 96; O2SAT 94; BMI 27.5
--- NOTE | 2023-06-11 09:28 | MHC.PC.OV ---
Vital Signs 06/11/23 09:28 Height 5 ft 11 in Weight 197 lb 4 oz BMI 27.5 BP 118/70 Blood Pressure Location Lt brachial Position Sitting Pulse 96 Pulse Oximetry (%) 94 Oxygen Delivery Method Room Air Intake Visit Reasons: Ear pain Intake Note: Pt is here for Ear pain, ongoign pain since Thursday. Pt went to Urgent care the follow day. Pt was given Azithromycin and Meloxicam. Pay Per Click Strategist Required: No Accompanied by: Self / Same As Patient Allergies ibuprofen [From Motrin IB] Allergy (Mild, Verified 06/11/23 09:28) Nausea and Vomiting Tobacco use date assessed: 09/03/22 Dental Screening Dental Screen Date: 06/11/23 Did you have a dental visit in the last 12 months?: No Did you have a dental problem in the last 6 months where you did not have access to dental care?: No Was dental information given to patient?: Patient has dentist HPI HPI Comments History of Present Illness Details 52-year-old male past medical history significant for type 2 diabetes mellitus, hyperlipidemia, lumbar spondylosis. Patient of Dr. Astorga. Patient presents today for ear pain, review of the notes patient was seen in the walk-in clinic on 06/09/2023 for right ear pain x3 days patient was noted to have right otitis media discharged home on antibiotic treatment. Of note patient reports he had 4 recurrent ear infections over the last year and was recommended to follow-up with PCP for referral to ENT. Patient reports diagnosed deaf as a child and he had multiple ear surgeries. [facility]LY [facility] Medical History (Updated 06/11/23 @ 10:00 by TOM Hair) Otitis externa Overweight (BMI 25.0-29.9) Smoker Insomnia Right hydrocele Vitamin D deficiency Lumbar degenerative disc disease Mixed dyslipidemia Diabetes mellitus Upper back pain on right side Surgical History History of surgery History of hydrocelectomy History of ear surgery History of extraction of renal calculus Family History Father Medical history unknown Mother Cancer Social History Housing: Apartment Alcohol intake: former Patient Tobacco Use Status: Current everyday Tobacco user Tobacco use type: Cigarette Cigarettes Per Day: 7 e-Cigarette/Vaping Use: Never Used Second Hand Smoke Exposure: Yes service: No Current occupational status: retired Cognitive needs: No Hearing needs: No Vision needs: No Questionnaire Thrive Questionnaire Date Thrive assessed: 09/11/22 ED-7 AMB Questionnaire ED-7 Date ED - 7 assessed: 09/11/22 Source: Developed by Drs. Travis Davis, Nirmala Prieto, Tirso Quintana and colleagues, with an educational dino from [employer]. Review of Systems Const Denies chills, Denies fatigue, Denies fever(s) and Denies poor appetite Eyes Denies no additional complaints ENT Reports otalgia, Denies nasal congestion, Denies sinus pain and Denies sinus pressure Card Denies chest pain, Denies rapid heart rate and Denies dyspnea Resp Denies cough and Denies dyspnea Neuro Denies confusion Psych Denies confusion Endo Denies fatigue Physical exam (Primary Care) Vital Signs: Last Vital Signs Pulse 96 06/11/23 09:28 BP 118/70 06/11/23 09:28 Pulse Ox 94 06/11/23 09:28 Oxygen Delivery Method Room Air 06/11/23 09:28 BMI result Body Mass Index 27.5 Tobacco/Smoking Status: Tobacco use Status Tobacco use date assessed 09/03/22 06/11/23 09:37 Patient Tobacco Use Status Current everyday Tobacco 06/11/23 09:37 Tobacco use type Cigarette 06/11/23 09:37 e-Cigarette/Vaping Use Never Used 06/11/23 09:37 Thrive Assessment: Date of Thrive Assessment Date Thrive assessed 09/11/22 06/11/23 09:37 Const General: No confusion Orientation/consciousness: No confusion HENMT Head: Yes normocephalic and Yes atraumatic Eyes Conjunctivae: conjunctivae normal Chest Chest palpation & inspection: normal inspection of the chest Resp Effort & Inspection: normal respiratory effort Auscultation: clear to auscultation bilaterally, no crackles, no rhonchi and no wheezes Cardio Rate: regular rate Rhythm: regular rhythm Heart sounds: S1 normal heart sound present and S2 normal heart sound present GI Inspection: Yes normal to inspection Neuro General: No confusion Extrem General: No edema Office Procedures Flu Questionnaire Does the patient have a severe egg allergy?: No Does the patient have severe life threatening allergies?: No Does the patient have a fever or illness today?: No Has the patient ever had Guillain-Lata[place] Syndrome?: No Has the patient ever had any past reaction to a flu shot?: No Immunizations flu vacc [id number] 6mos up(PF) 60 mcg(15 mcgx4)/0.5 mL IM syringe Performing Provider: TOM Hair Performing Location: [facility] Administered by: JULES Cooper on 06/11/23 09:45 Dose Route Admin Location Dispensed Lot Number Expiration Date NDC Security Operations Analyst 0.5 mL IM Left Deltoid 0.5 mL [id number] 01/10/24 32437-029-35 [employer] VIS Given Date VIS Provided VIS Publication Date 06/11/23 Single Vaccine 21 Eligibility Eligibility Date Funding Source Not [facility] Eligible 06/11/23 Private Assessment and Plan Assessment & Plan (1) Otitis media of right ear: Code(s): H66.91 - Otitis media, unspecified, right ear Qualifiers: Otitis media type: serous Chronicity: acute Recurrence: non-recurrent Qualified Code(s): H65.01 - Acute serous otitis media, right ear Plan: Patient advised to complete full course of antibiotic treatment. Given patient has had 3 prior right ear infections, for right ear infections including most recent. Will refer to ENT for further evaluation. (2) Otitis externa: Code(s): H60.90 - Unspecified otitis externa, unspecified ear Plan: Patient also noted to have canal inflammation with discharge will send Ciprodex for GTT is b.i.d. x7 days and to right ear to treat of otitis externa. Plan Keep scheduled follow-up with PCP. Orders: Orders Influenza [id number] Immunization Today Z23 - Encounter for immunization Referrals Ear/Nose/Throat Referral H66.91 - Otitis media, unspecified, right ear Medications: New ciprofloxacin-dexamethasone 0.3-0.1 % Right ear 4 drps otic (ears) BID 7 days 7.5 mL 0RF H60.90 - Unspecified otitis externa, unspecified ear Coding Level of Care Code Est Pt Level 3 (46585) Diagnoses Non-recurrent acute serous otitis media of right ear H65.01 Otitis media type: serous Chronicity: acute Recurrence: non-recurrent Otitis externa H60.90
== END 2023-06-11 11:01 | disposition home or self-care (01) ==
PROVIDERS: PCP Internal Medicine; Visit Provider Nurse Practitioner Family
DX: H65.01 Acute serous otitis media, right ear (principal); H60.91 Unspecified otitis externa, right ear; Z23 Encounter for immunization
CPT/HCPCS: 90471; 90686; 99213

== ENCOUNTER 2023-07-23 09:40 | Outpatient (AMB) | payer OTHER, SELFPAY ==
--- NOTE | 2023-07-23 09:51 | MHC.PC.OV ---
Vital Signs 07/23/23 09:52 Height 5 ft 11 in Weight 197 lb 8 oz BMI 27.5 BP 136/80 Blood Pressure Location Lt brachial Position Sitting Pulse 99 Pulse Source Pulse Oximeter Pulse Oximetry (%) 97 Oxygen Delivery Method Room Air Intake Visit Reasons: Physical exam Automatic Presser Required: No Accompanied by: Self / Same As Patient Allergies ibuprofen [From Motrin IB] Allergy (Mild, Verified 07/23/23 11:03) Nausea and Vomiting Medication List - Last Reconciled 07/23/23 by Aung Astorga MD albuterol sulfate 90 mcg/actuation 2 puffs PO QID PRN atorvastatin 10 mg PO DAILY blood sugar diagnostic bid blood-glucose meter test twice a day cholecalciferol (vitamin D3) (Vitamin D3) 50 mcg PO DAILY gabapentin 800 mg PO TID glimepiride 2 mg PO QAM 90 days lancets (BD Ultra-Fine II Lancets) twice a day meloxicam 15 mg PO DAILY metformin ER 1,000 mg (2 x 500 mg) PO BID nystatin 1 appl topical TID 10 days sitagliptin phosphate (Januvia) 100 mg PO DAILY Tobacco use date assessed: 07/23/23 Dental Screening Dental Screen Date: 07/23/23 Did you have a dental visit in the last 12 months?: No Did you have a dental problem in the last 6 months where you did not have access to dental care?: No Was dental information given to patient?: No HPI Physical exam HPI Details Patient comes in today for his annual physical examination States that he currently feels okay Was having some recurrent right ear infection over the past couple of months - went to the walk-in and then was also seen here by [facility] in May 2023 for the same issue States that he was referred to ENT then but he has not yet heard back from ENT States that his right ear presently feels much better although he still has some mild disomfort in the ear occasionally He denies any fever, headaches or dizziness Denies any chest pains, no SOB No nausea/vomiting, no abdominal pain No change in bowel habits noted Denies any acute urinary symptoms Still has recurrent low back pain and joint pains but states that these are mostly manageable and his current meds help keep them in check Has no follow up labs done recently He has also never had a screening colonoscopy done before - was referred for colonoscopy in 2021 but states that he never had it scheduled PFSH Medical History (Updated 07/23/23 @ 11:24 by Aung Astorga MD) Otitis externa Overweight (BMI 25.0-29.9) Smoker Insomnia Right hydrocele Vitamin D deficiency Lumbar degenerative disc disease Mixed dyslipidemia Diabetes mellitus Surgical History History of surgery History of hydrocelectomy History of ear surgery History of extraction of renal calculus Family History Father Medical history unknown Mother Cancer Social History Housing: Apartment Alcohol intake: former Patient Tobacco Use Status: Current everyday Tobacco user Tobacco use type: Cigarette Cigarettes Per Day: 7 e-Cigarette/Vaping Use: Never Used Second Hand Smoke Exposure: Yes service: No Current occupational status: retired Cognitive needs: No Hearing needs: No Vision needs: No Questionnaire PHQ-9 Over the last 2 weeks, how often have you been bothered by any of the following problems? 1. Little interest or pleasure in doing things: not at all 2. Feeling down, depressed, or hopeless: not at all 3. Trouble falling or staying asleep, or sleeping too much: not at all 4. Feeling tired or having little energy: not at all 5. Poor appetite or overeating: not at all 6. Feeling bad about yourself - or that you are a failure or have let yourself or your family down: not at all 7. Trouble concentrating on things, such as reading the newspaper or watching television: not at all 8. Moving or speaking so slowly that other people could have noticed. Or the opposite - being so fidgety or restless that you have been moving around a lot more than usual: not at all 9. Thoughts that you would be better off or of hurting yourself in some way: not at all Total score: 0 Depression Screening Interpretation: Negative Depression Screening Done: Yes 80156 - PHQ-9 Billing: Yes Source: Developed by Drs. Travis Davis, Nirmala Prieto, Tirso Quintana and colleagues, with an educational dino from [employer]. Thrive Questionnaire Date Thrive assessed: 07/23/23 I am a: Patient What is your living situation today?: I have a steady place to live Within the past 12 months, did the food you bought not last and you didn't have the money to get more?: Never true Within the past 12 months, did you worry whether your food would run out before you got money to buy more?: Never true Do you have trouble paying for medicines?: No Do you have trouble getting transportation to medical appointments?: No Do you have trouble paying your heating and electricity bill?: No Do you have trouble taking care of your child, family member or friend?: No Do you have trouble with day-to-day activities such as bathing, preparing meals, shopping, managing finances, etc.?: No Are you currently unemployed and looking for a job?: No Are you interested in more education?: No Please select the resources that you would like help with: None Currently or been in a relationship where the following occur: no concerns reported AUDIT C Alcohol Use Questionnaire (AUDIT-C) 1. How often do you have a drink containing alcohol?: Never 3. How often do you have six or more drinks on one occasion?: Never Total Score: 0 Score Reviewed/Action Taken: Yes ED-7 AMB Questionnaire ED-7 Date ED - 7 assessed: 07/23/23 Feeling nervous, anxious, or on edge: 0 = Not at all Not being able to stop or control worryin = Not at all Worrying too much about different things: 0 = Not at all Trouble relaxin = Not at all Being so restless that it is hard to sit still: 0 = Not at all Becoming easily annoyed or irritable: 0 = Not at all Feeling afraid as if something awful might happen: 0 = Not at all Total ED-7 score (0-4 normal; 5-9 mild; 10-14 moderate; 15-21 severe): 0 Source: Developed by Drs. Travis Davis, Nirmala Prieto, Tirso Quintana and colleagues, with an educational dino from [employer]. Review of Systems Const Denies chills, Denies fatigue, Denies fever(s), Denies headache(s), Denies malaise and Denies weakness Eyes Reports blurry vision (in both eyes), Denies change in vision, Denies irritation and Denies itchy eyes ENT Denies dysphagia, Denies dizziness, Denies ear discharge, Denies otalgia (but (+) occasional discomfort in the right ear), Denies headache(s), Denies nasal congestion, Denies neck pain, Denies odynophagia and Denies sore throat Card Denies chest pain, Denies rapid heart rate, Denies irregular heart rhythm, Denies palpitations and Denies dyspnea Resp Denies chest congestion, Denies cough, Denies dyspnea and Denies wheezing GI Denies abdominal pain, Denies bloating, Denies constipation, Denies dysphagia, Denies heartburn, Denies diarrhea, Denies nausea, Denies odynophagia and Denies vomiting Denies hematuria, Denies difficulty urinating, Denies dysuria, Denies urinary frequency and Denies urinary urgency Musc Reports back pain (recurrent, over the lower back), Denies arthralgias, Denies joint swelling, Denies muscle weakness and Denies neck pain Skin/Breast Denies change in pigmentation, Denies lesions, Denies rash and Denies unusual bruising Neuro Denies dizziness, Denies headache(s), Denies paresthesias and Denies weakness Endo Denies fatigue and Denies palpitations Aller/Immun Denies itchy eyes and Denies wheezing Physical exam (Primary Care) Vital Signs: Last Vital Signs Pulse 99 07/23/23 09:52 BP 136/80 07/23/23 09:52 Pulse Ox 97 07/23/23 09:52 Oxygen Delivery Method Room Air 07/23/23 09:52 BMI result Body Mass Index 27.5 Tobacco/Smoking Status: Tobacco use Status Tobacco use date assessed 07/23/23 07/23/23 09:53 Patient Tobacco Use Status Current everyday Tobacco 07/23/23 09:53 Tobacco use type Cigarette 07/23/23 09:53 e-Cigarette/Vaping Use Never Used 07/23/23 09:53 PHQ-9: PHQ-9 Score PHQ-9: Total score 0 07/23/23 10:23 Depression Screening Interpretation: Negative Thrive Assessment: Date of Thrive Assessment Date Thrive assessed 07/23/23 07/23/23 09:53 Currently or been in a relationship where the following occur: no concerns reported Const General: no acute distress, alert and awake Orientation/consciousness: patient oriented x3 HENMT Head: Yes normocephalic and Yes atraumatic Ears: external ears normal, TM's normal bilaterally and EAC's normal (but (+) minimal cerumen noted in the right ear canal) General nose exam: No nasal discharge present Face and sinus: Yes normal facial exam and Yes sinuses nontender Teeth and gingiva: dentition normal Throat: Yes posterior oropharynx normal and Yes tonsils normal (no TP congestion) Eyes Eyelids: Yes eyelids normal Conjunctivae: conjunctivae normal Pupils: Equal, round and reactive pupils present EOM: EOMs intact bilaterally Neck Neck: Yes no lymphadenopathy and Yes supple Thyroid: Thyroid normal Resp Auscultation: clear to auscultation bilaterally, no rales and no wheezes Cardio Rate: regular rate Rhythm: regular rhythm Heart sounds: no murmurs GI Palpation (GI): Soft to palpation, nontender and No hepatosplenomegaly present Auscultation: normal bowel sounds General: Yes no CVA tenderness Back/Spine/Pelvis Back: no CVA tenderness Thoracic/Lumbar Spine: lumbar spinal tenderness Skin Lesions: no lesions Rashes: no rashes Neuro General: patient oriented x3, moves all extremities, no focal motor deficits and CN's II-XI intact bilaterally Cranial nerves: Yes Equal, round and reactive pupils present Cognition (Neuro): normal cognition Gait exam (Neuro): Normal gait present Extrem General: Yes no clubbing, cyanosis or edema Assessment and Plan Assessment & Plan (1) Annual physical exam: Code(s): Z00.00 - Encounter for general adult medical examination without abnormal findings Plan: Check labs YESICA He has never had a screening colonoscopy done (was referred back in 2020 but he never got it scheduled) (2) Diabetes mellitus: Code(s): E11.9 - Type 2 diabetes mellitus without complications Qualifiers: Diabetes mellitus type: type 2 Diabetes mellitus skilled nursing insulin use: without adjunct faculty for medical terminology use Diabetes mellitus complication status: with hyperglycemia Qualified Code(s): E11.65 - Type 2 diabetes mellitus with hyperglycemia Plan: In-office HgbA1c was at 7.6% when it was last checked in December 2022 (was at 9.5% previous to that) - goal is <7.0% Will recheck his HgbA1c and FBS with his other labs YESICA Reinforced diabetic diet Continue Metformin ER 1000 mg BID, Januvia 100 mg QD and Glimepiride 2 mg Q AM Will also refer him for his diabetic eye exam - states that he has not had one done in years (3) Mixed dyslipidemia: Code(s): E78.2 - Mixed hyperlipidemia Plan: Will recheck his fasting lipids YESICA Reinforced low cholesterol diet Reinforced his increased risk of coronary or CV event more than average due to his diabetes and comorbidities Continue Atorvastatin 10 mg QD Will recheck his labs and fasting lipids again in 3 months for follow up (4) Vitamin D deficiency: Code(s): E55.9 - Vitamin D deficiency, unspecified Plan: Continue Vitamin D3 2000 units QD Will recheck Vitamin D level for follow up (5) Lumbar degenerative disc disease: Code(s): M51.36 - Other intervertebral disc degeneration, lumbar region Plan: Reinforced activity and weight-lifting restrictions Continue Gabapentin 800 mg TID and Percocet 5-325 mg QD PRN only for severe pain (6) Insomnia: Code(s): G47.00 - Insomnia, unspecified Qualifiers: Insomnia type: unspecified Qualified Code(s): G47.00 - Insomnia, unspecified Plan: Sleep hygiene reinforced (7) Smoker: Code(s): F17.200 - Nicotine dependence, unspecified, uncomplicated Plan: Counseled again on smoking cessation (8) Overweight (BMI 25.0-29.9): Code(s): E66.3 - Overweight Plan: Reinforced diet/exercise as tolerated/lose weight (9) Colon cancer screening: Code(s): Z12.11 - Encounter for screening for malignant neoplasm of colon Plan: Will refer him again for screening colonoscopy - has never had one done in the past Plan Have advised him that based on the info in his chart, he is to call Dr. Chen's office on his own to schedule his appt with ENT - have printed out referral with Dr. Chen's office phone number and handed form to patient and he is encouraged to call Dr. Chen's office YESICA Follow up in 3 months Orders: Orders Complete Blood Count Auto Diff Today E11.9 - Type 2 diabetes mellitus without complications, Z00.00 - Encounter for general adult medical examination without abnormal findings Lipid Panel Today E78.00 - Pure hypercholesterolemia, unspecified, Z00.00 - Encounter for general adult medical examination without abnormal findings Hemoglobin A1c Today E11.9 - Type 2 diabetes mellitus without complications, Z00.00 - Encounter for general adult medical examination without abnormal findings Microalbumin, Random (w Creat) Today E11.9 - Type 2 diabetes mellitus without complications, Z00.00 - Encounter for general adult medical examination without abnormal findings Lipid Panel 3 Months E78.00 - Pure hypercholesterolemia, unspecified Hemoglobin A1c 3 Months E11.9 - Type 2 diabetes mellitus without complications Comprehensive [place]. Panel Fast Today E78.00 - Pure hypercholesterolemia, unspecified, Z00.00 - Encounter for general adult medical examination without abnormal findings UA CC w/rflx Micro + Cult Today R30.0 - Dysuria, Z00.00 - Encounter for general adult medical examination without abnormal findings TSH reflex Free T4 Today E78.00 - Pure hypercholesterolemia, unspecified, Z00.00 - Encounter for general adult medical examination without abnormal findings Vitamin D 25-OH Total Today E55.9 - Vitamin D deficiency, unspecified, Z00.00 - Encounter for general adult medical examination without abnormal findings Prostate Specific Antigen Scr Today Z00.00 - Encounter for general adult medical examination without abnormal findings Comprehensive [place]. Panel Fast 3 Months E78.00 - Pure hypercholesterolemia, unspecified Referrals Gastroenterology Referral Z12.11 - Encounter for screening for malignant neoplasm of colon Ophthalmology Referral E11.9 - Type 2 diabetes mellitus without complications Coding Level of Care Code Est Pt Prev Care 40-64y(23714) Diagnoses Annual physical exam Z00.00 Type 2 diabetes mellitus with hyperglycemia, without long-term current use of insulin E11.65 Diabetes mellitus type: type 2 Diabetes mellitus adjunct faculty for medical terminology insulin use: without skilled nursing use Diabetes mellitus complication status: with hyperglycemia Mixed dyslipidemia E78.2 Vitamin D deficiency E55.9 Lumbar degenerative disc disease M51.36 Insomnia, unspecified type G47.00 Insomnia type: unspecified Smoker F17.200 Overweight (BMI 25.0-29.9) E66.3 Colon cancer screening Z12.11
[2023-07-23 09:52] VITALS: BP 136/80; PULSE 99; O2SAT 97; BMI 27.5
== END 2023-07-23 11:15 | disposition home or self-care (01) ==
PROVIDERS: PCP Internal Medicine; Visit Provider Internal Medicine
DX: Z00.00 Encounter for general adult medical examination without abnormal findings (principal); E11.65 Type 2 diabetes mellitus with hyperglycemia; E78.2 Mixed hyperlipidemia; E55.9 Vitamin D deficiency, unspecified; M51.36 Other intervertebral disc degeneration, lumbar region; G47.00 Insomnia, unspecified; F17.200 Nicotine dependence, unspecified, uncomplicated; E66.3 Overweight; Z12.11 Encounter for screening for malignant neoplasm of colon
CPT/HCPCS: 99396

== ENCOUNTER 2023-10-01 17:19 | Inpatient (IN) | payer OTHER, SELFPAY ==
--- NOTE | 2023-10-01 17:47 | ED_ITS ---
HPI - General Adult General Chief complaint: Psychiatric Symptoms Stated complaint: crisis eval suicidal Time Seen by Provider: 10/01/23 17:32 Source: patient, RN notes reviewed and old records reviewed Mode of arrival: ambulatory Limitations: no limitations History of Present Illness HPI narrative: 52-year-old male presents for evaluation of depression and suicidal ideation. Patient reports increasing depression for the last 2 days He reports his symptoms have been worsening he is now feeling suicidal He does not have a plan He reports he takes medication for depression but does not know the name. He reports he has been compliant with it He denies any somatic complaints He denies any inciting incidents Denies any alcohol or drug abuse Related Data Home Medications Medication Instructions Recorded Confirmed bupropion HCl 300 mg 24 hr tablet, 300 mg PO DAILY 10/01/23 10/01/23 extended release duloxetine 30 mg capsule,delayed 30 mg PO BID 10/01/23 10/01/23 release trazodone 100 mg tablet 100 mg PO BEDTIME 10/01/23 10/01/23 Previous Rx's Medication Instructions Recorded blood sugar diagnostic #100 ea 04/18/22 blood-glucose meter #1 ea 04/18/22 lancets 30 gauge (BD Ultra-Fine II #100 ea 04/18/22 Lancets) sitagliptin phosphate 100 mg 100 mg PO DAILY #90 tabs 02/04/23 tablet (Januvia) cholecalciferol (vitamin D3) 50 50 mcg PO DAILY #90 tabs 03/11/23 mcg (2,000 unit) tablet (Vitamin D3) glimepiride 2 mg tablet 2 mg PO QAM 90 days #90 tabs 03/11/23 metformin 500 mg tablet,extended 1,000 mg (2 x 500 mg) PO BID #360 06/18/23 release 24 hr tabs albuterol sulfate 90 mcg/actuation 2 puff PO QID PRN for wheezing 09/30/23 aerosol inhaler #8.5 grams oxycodone-acetaminophen 5 mg-325 See Rx Instructions PO .COMPLEX 09/30/23 mg tablet PRN pain 30 days #10 tabs Allergies Allergy/AdvReac Type Severity Reaction Status Date / Time ibuprofen [From Motrin IB] Allergy Mild Nausea and Verified 07/23/23 11:03 Vomiting Review of Systems 2 Constitutional: Constitutional: Denies body ache(s), Denies chills and Denies fever(s) ENT: Denies sore throat Cardiovascular: Cardiovascular: Denies chest pain Respiratory: Respiratory: Denies cough Gastrointestinal: Gastrointestinal: Denies abdominal pain and Denies vomiting Musculoskeletal: Musculoskeletal: Denies back pain Integumentary/Breasts: Skin/Breast: Denies rash Psychiatric: Psychiatric: Reports anxiety, Reports depression and Reports suicidal ideation FORMERLY [facility], [facility] Past Medical History Medical History (Updated 10/01/23 @ 17:51 by Rashi Samano) Otitis externa Overweight (BMI 25.0-29.9) Smoker Insomnia Right hydrocele Vitamin D deficiency Lumbar degenerative disc disease Mixed dyslipidemia Diabetes mellitus Surgical History History of surgery History of hydrocelectomy History of ear surgery History of extraction of renal calculus Family History Family History Father Medical history unknown Mother Cancer Social History Social History Housing: Apartment Alcohol intake: former Patient Tobacco Use Status: Current everyday Tobacco user Tobacco use type: Cigarette Cigarettes Per Day: 7 e-Cigarette/Vaping Use: Never Used Second Hand Smoke Exposure: Yes Advance Directives: No Advance Directives Information Provided: No service: No Current occupational status: retired Cognitive needs: No Hearing needs: No Vision needs: No Physical Exam ED Vital Signs: Vital Signs - 24 hr 10/01/23 18:09 10/02/23 02:45 10/02/23 07:50 Temperature 98.3 F 98.4 F 97.6 F Pulse Rate 110 H 89 92 Respiratory Rate 14 16 17 Blood Pressure 159/75 H 116/70 115/74 Pulse Oximetry 96 99 96 Oxygen Delivery Method Room Air Room Air Room Air BMI result Body Mass Index 31.3 Const General: healthy appearing, comfortable, no acute distress, alert and awake Nutritional Appearance: well nourished Orientation/consciousness: patient oriented x3 HENMT Head: Yes normocephalic and Yes atraumatic Eyes Eyelids: Yes eyelids normal Conjunctivae: conjunctivae normal Sclerae: sclerae normal Corneas: corneas normal Pupils: Equal, round and reactive pupils present EOM: EOMs intact bilaterally Neck Neck: Yes full ROM Resp Effort & Inspection: normal respiratory effort, able to speak in complete sentences and not labored Cardio Rate: regular rate Rhythm: regular rhythm GI Inspection: No distended Palpation (GI): Soft to palpation, not firm, nontender, no guarding and not rigid Skin General skin exam: elasticity normal Neuro General: patient oriented x3 Cranial nerves: Yes Equal, round and reactive pupils present and Yes Bilaterally intact EOM present Cognition (Neuro): normal cognition Extrem Other: Moving all extremities well without any obvious deformities Course Reevaluation(s) Reevaluation #1: observation continued no acute events VS stable inpatient bed search Time: Medications Administered Generic Name Dose Route Start Last Admin Trade Name Freq PRN Reason Stop Dose Admin Bupropion HCl 300 mg 10/02/23 09:00 10/02/23 08:06 Bupropion Hcl Xl 300 Mg Tab.Er.24h PO 300 mg DAILY BLESSING Administration Duloxetine HCl 30 mg 10/02/23 09:00 10/02/23 08:04 Duloxetine Hcl 30 Mg Capsule.Dr PO 30 mg BID BLESSING Administration Glipizide 5 mg 10/02/23 09:00 10/02/23 08:04 Glipizide 5 Mg Tablet PO 5 mg DAILY BLESSING Administration Metformin HCl 1,000 mg 10/02/23 08:00 10/02/23 08:04 Metformin Hcl Er 500 Mg Tab.Er.24h PO 1,000 mg BIDWM BLESSING Administration Sitagliptin Phosphate 100 mg 10/02/23 09:00 10/02/23 08:04 Sitagliptin Phosphate 100 Mg Tablet PO 100 mg DAILY BLESSING Administration Trazodone HCl 100 mg 10/01/23 23:30 10/02/23 01:56 Trazodone Hcl 100 Mg Tablet PO Not Given BEDTIME BLESSING Vitamin D 50 mcg 10/02/23 09:00 10/02/23 08:04 Cholecalciferol (Vitamin D3) 25 Mcg Tablet PO 50 mcg DAILY BLESSING Administration Medical Decision Making Medical Decision Making MDM Narrative: 52-year-old male presents for evaluation depression with suicidal ideation. Plan for medical clearance with basic labs and a urine/tox screen. He has no somatic complaints and an unremarkable physical exam. Plan for care team evaluation once medically cleared Differential Diagnosis Differential Diagnoses: The differential diagnosis associated with the presentation includes Depression Suicidal ideation Anxiety Medication noncompliance Major depressive episode Bipolar disorder Lab Data 10/01/23 19:13 10/01/23 19:13 Labs: Lab Results 10/01/23 10/02/23 10/02/23 Range/Units 19:13 02:39 06:32 WBC 11.7 H (4.8-10.8) X10*3/uL RBC 4.95 (4.60-5.80) X10*6/uL Hgb 13.2 L (14.0-18.0) g/dl Hct 39.5 L (42.0-52.0) % MCV 79.8 L (80.0-98.0) fL MCH 26.7 L (27.0-33.0) pg MCHC 33.4 (31.0-36.0) g/dl RDW 14.3 (11.0-16.0) % Plt Count 362 (160-400) X10*3/uL MPV 9.2 L (9.4-12.4) fL Immature Gran % (Auto) 0.4 (0.0-0.4) % Neut % (Auto) 64.1 (45-73) % Lymph % (Auto) 21.7 (20-40) % [place] % (Auto) 11.9 H (2-11) % Eos % (Auto) 1.4 (0-4) % Baso % (Auto) 0.5 (0-2) % Lymph # (Auto) 2.5 (1.2-4.9) X10*3/uL [place] # (Auto) 1.4 H (0.1-1.2) X10*3/uL Eos # (Auto) 0.2 (0.0-0.4) X10*3/uL Baso # (Auto) 0.1 (0.0-0.2) X10*3/uL Abs Immat Gran (auto) 0.05 H (0.00-0.03) X10*3/uL Absolute Neuts (auto) 7.5 (2.0-8.3) x10*3/uL Absolute Nucleated RBC 0.000 (0.0-0.012) X10*3/uL Nucleated RBC % (auto) 0.0 (0.0-0.2) /100WBC Sodium 140 (135-145) mmol/L Potassium 3.7 (3.3-5.1) mmol/L Chloride 104 (96-108) mmol/L Carbon Dioxide 25 (22-29) mmol/L Anion Gap 15 (12-20) BUN 14 (9-16) mg/dL Creatinine 0.95 (0.5-1.4) mg/dL Estim Creat Clear Calc 97.7 Estimated GFR > 60 Random Glucose 205 H (60-115) mg/dL Calcium 9.5 (8.4-10.2) mg/dL Magnesium 1.8 (1.6-2.6) mg/dL Total Bilirubin 0.2 (0.0-1.0) mg/dL AST 11 (5-37) U/L ALT 13 (0-40) U/L Alkaline Phosphatase 75 (39-117) U/L Total Protein 7.4 (6.5-8.0) g/dL Albumin 3.9 (3.5-5.0) g/dL Urine Color Yellow Urine Appearance Clear Urine pH 6.0 (5.0-9.0) Ur Specific [place] 1.025 (1.005-1.025) Urine Protein Negative (Neg-Trace) mg/dL Urine Glucose (UA) Negative (Negative) mg/dL Urine Ketones Negative (Negative) mg/dL Urine Blood Negative (Negative) Urine Nitrite Negative (Negative) Ur Leukocyte Esterase Negative (Negative) Urine Opiates Screen Not Detected (Not Detect) Urine Fentanyl Screen Not Detected (Not Detect) Ur Barbiturates Screen Not Detected (Not Detect) Ur Phencyclidine Scrn Not Detected (Not Detect) Ur Amphetamines Screen Not Detected (Not Detect) U Benzodiazepines Scrn Not Detected (Not Detect) Urine Cocaine Screen Not Detected (Not Detect) U Marijuana (THC) Screen Not Detected (Not Detect) Ethyl Alcohol < 10 mg/dL COVID-19 ([facility]) Negative (Negative) COVID-19 Clin Com See Note Discharge Plan Discharge Clinical Impression: Depression with suicidal ideation Patient Disposition: Still a Patient Prescriptions: No Action (DME) blood sugar diagnostic Strip See Rx Instructions .ROUTE .MEDSUPPLY Qty: 100 1RF Rx Instructions: bid (DME) blood-glucose meter Kit See Rx Instructions .ROUTE .MEDSUPPLY Qty: 1 0RF Rx Instructions: test twice a day (DME) lancets [BD Ultra-Fine II Lancets] 30 gauge misc See Rx Instructions .ROUTE .MEDSUPPLY Qty: 100 1RF Rx Instructions: twice a day Januvia 100 mg tablet 100 mg PO DAILY Qty: 90 1RF cholecalciferol (vitamin D3) [Vitamin D3] 50 mcg (2,000 unit) tablet 50 mcg PO DAILY Qty: 90 2RF glimepiride 2 mg tablet 2 mg PO QAM 90 Days Qty: 90 1RF metformin 500 mg tablet extended release 24 hr 1,000 mg PO BID Qty: 360 1RF albuterol sulfate 90 mcg/actuation HFA aerosol inhaler 2 puff PO QID PRN (Reason: for wheezing) Qty: 8.5 3RF oxycodone-acetaminophen 5-325 mg tablet See Rx Instructions PO .COMPLEX PRN (Reason: pain) 30 Days Qty: 10 0RF Rx Instructions: 1 tablet orally 1 to 2 times a day as needed only for severe pain bupropion HCl 300 mg tablet extended release 24 hr 300 mg PO DAILY duloxetine 30 mg capsule,delayed release(DR/EC) 30 mg PO BID trazodone 100 mg tablet 100 mg PO BEDTIME Interventions: Arrington-Suicide Risk Severity Scale Last Done: 10/01/23 17:55
[2023-10-01 17:53] VITALS: BMI 31.3
--- NOTE | 2023-10-01 17:57 | PC.NURSE ---
patient belongings in locker 3, calm and cooperative and changed into hospital attire. states he has housing court tomorrow and will need the number to call them in the morning. offering no other complaints at this time.
[2023-10-01 18:09] VITALS: BP 159/75; PULSE 110; RESP 14; TEMP 36.8; O2SAT 96
--- NOTE | 2023-10-01 19:10 | PC.NURSE ---
patient appears to remain asleep at present respirations are even and unlabored patient appears in no distress.
[2023-10-01 19:17] LABS: MANUAL DIFF FLAG NO
[2023-10-01 19:19] LABS: Basophils Absolute Auto 0.1 X10*3/uL (0.0-0.2); Basophils Percent Auto 0.5 % (0-2); Eosinophils Absolute Auto 0.2 X10*3/uL (0.0-0.4); Eosinophils Percent Auto 1.4 % (0-4); Hematocrit 39.5 % (42.0-52.0); Hemoglobin 13.2 g/dl (14.0-18.0); Imm Gran Abs Auto 0.05 X10*3/uL (0.00-0.03); Imm Gran Pct Auto 0.4 % (0.0-0.4); Lymphocytes Absolute Auto 2.5 X10*3/uL (1.2-4.9); Lymphocytes Percent Auto 21.7 % (20-40); Mean Corpuscular HGB Conc 33.4 g/dl (31.0-36.0); Mean Corpuscular Hemoglobin 26.7 pg (27.0-33.0); Mean Corpuscular Volume 79.8 fL (80.0-98.0); Mean Platelet Volume 9.2 fL (9.4-12.4); Monocytes Absolute Auto 1.4 X10*3/uL (0.1-1.2); Monocytes Percent Auto 11.9 % (2-11); Neutrophils Absolute Auto 7.5 x10*3/uL (2.0-8.3); Neutrophils Percent Auto 64.1 % (45-73); Platelet Count 362 X10*3/uL (160-400); Red Blood Count 4.95 X10*6/uL (4.60-5.80); Red Cell Distribution Width 14.3 % (11.0-16.0); White Blood Count 11.7 X10*3/uL (4.8-10.8)
[2023-10-01 19:47] LABS: Alanine Aminotransferase 13 U/L (0-40); Albumin Level 3.9 g/dL (3.5-5.0); Alkaline Phosphatase 75 U/L (39-117); Anion Gap 15 (12-20); Aspartate Amino Transferase 11 U/L (5-37); Bilirubin Total 0.2 mg/dL (0.0-1.0); Blood Urea Nitrogen 14 mg/dL (9-16); Calcium 9.5 mg/dL (8.4-10.2); Carbon Dioxide 25 mmol/L (22-29); Chloride 104 mmol/L (96-108); Creatinine Clr Calc Pharmacy 97.7; Estimated Glomerular Filt Rate > 60; Ethanol < 10 mg/dL; Glucose Random 205 mg/dL (60-115); Magnesium 1.8 mg/dL (1.6-2.6); Potassium 3.7 mmol/L (3.3-5.1); Sodium 140 mmol/L (135-145); Total Protein 7.4 g/dL (6.5-8.0)
[2023-10-02 02:45] VITALS: BP 116/70; PULSE 89; RESP 16; TEMP 36.9; O2SAT 99
[2023-10-02 02:52] LABS: Appearance Urine Clear; Color Urine Yellow; Glucose Urine UA Negative (Negative); Leukocyte Esterase Urine Negative (Negative); Nitrite Urine Negative (Negative); Specific Gravity - Urine 1.025 (1.005-1.025); Urine Blood Negative (Negative); Urine Ketones Negative (Negative); Urine Protein Negative (Neg-Trace)
[2023-10-02 03:03] LABS: Amphetamine Screen Urine Not Detected (Not Detect); Barbiturates, Urine Not Detected (Not Detect); Benzodiazepines Screen Urine Not Detected (Not Detect); Cannabinoid Screen Urine Not Detected (Not Detect); Cocaine Screen Urine Not Detected (Not Detect); Fentanyl, urine Not Detected (Not Detect); Opiate Screen Urine Not Detected (Not Detect); Phencyclidine Screen Urine Not Detected (Not Detect)
[2023-10-02 06:49] LABS: COVID-19 Test Negative (Negative); IDNOW Serial# 08D9AD1C
[2023-10-02 07:50] VITALS: BP 115/74; PULSE 92; RESP 17; TEMP 36.4; O2SAT 96
--- NOTE | 2023-10-02 07:50 | PC.NURSE ---
PT IS A/O X 4 NO SOB/BELLE NOTED SPEAKS IN FULL SENTENCES. DENIES ANY PAIN/DISC/SI. PT ATE 80% OF BREAKFAST. AMB (I) GAIT STEADY TO HALLWAY/PHONE AND BTB. PT AWARE OF PLAN OF CARE. WILL CONTINUE TO MONITOR.
[2023-10-02] MEDS: SITagliptin Phosphate 100 MG TABLET PO (08:04)
[2023-10-02] MEDS: Cholecalciferol (Vitamin D3) 25 MCG TABLET 50 MCG PO (08:04)
[2023-10-02] MEDS: metFORMIN HCl ER 500 MG TAB.ER.24H 1000 MG PO ×2 (08:04→17:43)
[2023-10-02] MEDS: DULoxetine HCl 30 MG CAPSULE.DR PO ×2 (08:04→20:58)
[2023-10-02] MEDS: glipiZIDE 5 MG TABLET PO (08:04)
[2023-10-02] MEDS: buPROPion HCl XL 300 MG TAB.ER.24H PO (08:06)
--- NOTE | 2023-10-02 08:48 | ECG_ITS ---
Test Reason : CHECK QT Blood Pressure : / mmHG Vent. Rate : 094 BPM Atrial Rate : 094 BPM P-R Int : 146 ms QRS Dur : 086 ms QT Int : 348 ms P-R-T Axes : 054 047 047 degrees QTc Int : 435 ms Normal sinus rhythm Normal ECG When compared with ECG of 15-OCT-2012 05:20, No significant change was found Referred By: Beth Trammell Electronically Signed By:LUIS EDUARDO FOSS
[2023-10-02 11:45] LABS: Glucose, Whole Blood 91 mg/dL (60-115)
[2023-10-02 13:40] VITALS: BP 117/76; PULSE 110; RESP 18; TEMP 36.6; O2SAT 97
--- NOTE | 2023-10-02 15:19 | PC.ADMIT ---
Pt arrived on M3 from [facility] on 10/02/23 at 1338 after experiencing CAH and SI to jump off the bridge in [place]. He reports I had a lot of thoughts going through my head for like 3 days and it just got to be too much. I am so thankful for the old man who helped me. He talked me into getting help and followed me all the way to the hospital. I feel so much better now that I am here and am so happy he helped me. At present, he presents as depressed but calm and pleasant upon approach. He denies current SI/HI/AVH and sattes I have not heard the voices in a long time but when I do hear them, I hear a man walking with chains. He does report that he frequently will forget to take doses of his medications but his girlfriend typically aides in helping him. He states that he has been on these medications for a long time and reports feeling pretty good when he does take it. His thought process is clear and linear, his focus is intact. He makes good eye contact throughout the meeting. He denies any substance or alcohol use currently, and his tox screen was negative for all substances. He does report current cigarette smoking (about 1 pack every 3 days) but declined nicorette replacement. He reports chronic back pain due to slipped discs but has not had surgery for them, he has pain medication for management. He denies any other complaints at this time. Skin check completed by this RN and Nuria Samuel RN. He was placed on 15 minute checks for safety.
--- NOTE | 2023-10-02 18:35 | PC.NURSE ---
Pt declined nicotine replacement. Pt reports already receiving Flu Shot this year
[2023-10-02 20:50] VITALS: BP 121/72; PULSE 97; RESP 16; TEMP 36.8; O2SAT 96
[2023-10-02] MEDS: traZODone HCL 100 MG TABLET PO (20:58)
[2023-10-02] MEDS: oxyCODONE HCl Immed Release 5 MG TABLET PO (20:58)
--- NOTE | 2023-10-02 21:06 | PC.NURSE ---
Patient given Roxycodone for back pain 01/19
[2023-10-02 21:07] LABS: Glucose, Whole Blood 164 mg/dL (60-115)
--- NOTE | 2023-10-03 07:27 | HO.PSYADMNOT ---
HPI Date of Service: 10/03/23 Chief Complaint: Crisis Sources of Information: patient interviewed, chart reviewed and crisis/core team assessment reviewed HPI Subjective Notes: Bonilla Warning and Conditional Voluntary Narrative: Patient is a 52 year old male with hx of MDD who presented to ER d/t suicidal ideation secondary to increased depression and life stressors. Per crisis report, pt reported being at [facility] and was thinking of jumping. He reports a man who was fishing intervened and talked him into coming to ER. Pt reported auditory hallucinations to jump off his porch at his apartment. He reported feeling overwhelmed by stressors and being behind on rent, having to go to housing court, and having car troubles. During admission assessment, pt presents calm and cooperative. Pt reports he came to the ER because there was a lot going on in my head and I wanted to kill myself . Pt stated, there has been a lot of family issues where my family in [place] has been talking shit about my family here. I just wanted to be left alone. I got overwhelmed and was stressed. I don't want to . When asked about auditory and visual hallucinations, pt stated, I told them I had voices months ago, not recently . pt denies any substance use. He reports medication compliance. Pt denies SI/HI/VH/AH. pt asked to sign 3 day notice when assessment was complete; RN reviewed 3 day notice with pt. Past Psychiatric History: therapist: Angeline at [facility] Prescriber: Dr. Benitez at [facility] 1st inpatient psychiatric hospitalization. pt denies any hx of SIB/SA. Medical Evaluation Reviewed: Yes [facility] Medical History (Updated 10/03/23 @ 18:15 by Gail Schaefer NP) Otitis externa Overweight (BMI 25.0-29.9) Smoker Insomnia Right hydrocele Vitamin D deficiency Lumbar degenerative disc disease Mixed dyslipidemia Diabetes mellitus Surgical History History of surgery History of hydrocelectomy History of ear surgery History of extraction of renal calculus Family History: denies Social History: lives alone, single, 8 children (reports they live all over ), disabled. Substance History: denies Trauma History: denies Diagnostics Vital Signs (24Hr): Vital Signs - 24 hr 10/02/23 07:50 10/02/23 13:40 10/02/23 20:50 Temperature 97.6 F 97.9 F 98.2 F Pulse Rate 92 110 H 97 Respiratory Rate 17 18 16 Blood Pressure 115/74 117/76 121/72 Pulse Oximetry 96 97 96 Oxygen Delivery Method Room Air Room Air Room Air BMI result Body Mass Index 31.3 Labs 10/01/23 19:13 10/03/23 07:29 Labs: Laboratory Results - last 48 hr 10/01/23 10/02/23 10/02/23 19:13 02:39 06:32 WBC 11.7 H RBC 4.95 Hgb 13.2 L Hct 39.5 L MCV 79.8 L MCH 26.7 L MCHC 33.4 RDW 14.3 Plt Count 362 MPV 9.2 L Immature Gran % (Auto) 0.4 Neut % (Auto) 64.1 Lymph % (Auto) 21.7 [place] % (Auto) 11.9 H Eos % (Auto) 1.4 Baso % (Auto) 0.5 Lymph # (Auto) 2.5 [place] # (Auto) 1.4 H Eos # (Auto) 0.2 Baso # (Auto) 0.1 Abs Immat Gran (auto) 0.05 H Absolute Neuts (auto) 7.5 Absolute Nucleated RBC 0.000 Nucleated RBC % (auto) 0.0 Sodium 140 Potassium 3.7 Chloride 104 Carbon Dioxide 25 Anion Gap 15 BUN 14 Creatinine 0.95 Estim Creat Clear Calc 97.7 Estimated GFR > 60 POC Glucose Random Glucose 205 H Calcium 9.5 Magnesium 1.8 Total Bilirubin 0.2 AST 11 ALT 13 Alkaline Phosphatase 75 Total Protein 7.4 Albumin 3.9 Urine Color Yellow Urine Appearance Clear Urine pH 6.0 Ur Specific [place] 1.025 Urine Protein Negative Urine Glucose (UA) Negative Urine Ketones Negative Urine Blood Negative Urine Nitrite Negative Ur Leukocyte Esterase Negative Urine Opiates Screen Not Detected Urine Fentanyl Screen Not Detected Ur Barbiturates Screen Not Detected Ur Phencyclidine Scrn Not Detected Ur Amphetamines Screen Not Detected U Benzodiazepines Scrn Not Detected Urine Cocaine Screen Not Detected U Marijuana (THC) Screen Not Detected Ethyl Alcohol < 10 COVID-19 ([facility]) Negative COVID-19 Clin Com See Note 10/02/23 10/02/23 11:41 20:57 WBC RBC Hgb Hct MCV MCH MCHC RDW Plt Count MPV Immature Gran % (Auto) Neut % (Auto) Lymph % (Auto) [place] % (Auto) Eos % (Auto) Baso % (Auto) Lymph # (Auto) [place] # (Auto) Eos # (Auto) Baso # (Auto) Abs Immat Gran (auto) Absolute Neuts (auto) Absolute Nucleated RBC Nucleated RBC % (auto) Sodium Potassium Chloride Carbon Dioxide Anion Gap BUN Creatinine Estim Creat Clear Calc Estimated GFR POC Glucose 91 164 H Random Glucose Calcium Magnesium Total Bilirubin AST ALT Alkaline Phosphatase Total Protein Albumin Urine Color Urine Appearance Urine pH Ur Specific [place] Urine Protein Urine Glucose (UA) Urine Ketones Urine Blood Urine Nitrite Ur Leukocyte Esterase Urine Opiates Screen Urine Fentanyl Screen Ur Barbiturates Screen Ur Phencyclidine Scrn Ur Amphetamines Screen U Benzodiazepines Scrn Urine Cocaine Screen U Marijuana (THC) Screen Ethyl Alcohol COVID-19 ([facility]) COVID-19 Clin Com Meds/Allergies Meds Home Medications Medication Instructions Recorded Confirmed Type bupropion HCl 300 mg 24 hr tablet, 300 mg PO DAILY 10/01/23 10/01/23 History extended release duloxetine 30 mg capsule,delayed 30 mg PO BID 10/01/23 10/01/23 History release trazodone 100 mg tablet 100 mg PO BEDTIME 10/01/23 10/01/23 History Allergies Allergies Allergy/AdvReac Type Severity Reaction Status Date / Time ibuprofen [From Motrin IB] Allergy Mild Nausea and Verified 07/23/23 11:03 Vomiting Mental Status Exam Mental Status Exam Narrative: Pt is alert and oriented; behavior is cooperative and calm; dressed in casual attire; mood is described as stressed ; eye contact appropriate; Speech is normal rate, volume and prosody and not pressured; thought process is organized and goal directed; Thought content is on tx; otherwise pertinent to relevant topics and without any delusional content, paranoid ideations or grandiosity; denies SI/HI/VH/AH. Assessment & Plan Assessment & Plan (1) MDD (major depressive disorder): Status: Acute Code(s): F32.9 - Major depressive disorder, single episode, unspecified Plan Patient is a 52 year old male with hx of MDD who presented to ER d/t suicidal ideation secondary to increased depression and life stressors. Plan: CV 15 minute safety checks continue home medication encourage groups discharge planning pt signed 3 day notice. Patient educated on: diagnosis, medication risk/benefits and therapeutic strategies Informed Consent: understands Reason for continued inpatient stay Substantial Risk for: med/psych decompensation Statement Statement: I have reviewed the history and physical and performed a pertinent examination on my patient. No changes have occurred unless specified. If the History and Physical was not performed prior to admission, the Hospitalist's service will be consulted for completing the admission physical. Time Spent With Patient Time: Total time managing care of this patient today _60___ minutes.
[2023-10-03 07:50] VITALS: BP 118/62; PULSE 106; RESP 14; TEMP 36.8; O2SAT 95
[2023-10-03 08:20] LABS: Alanine Aminotransferase 15 U/L (0-40); Albumin Level 3.9 g/dL (3.5-5.0); Alkaline Phosphatase 71 U/L (39-117); Anion Gap 14 (12-20); Aspartate Amino Transferase 11 U/L (5-37); Bilirubin Total 0.3 mg/dL (0.0-1.0); Blood Urea Nitrogen 16 mg/dL (9-16); Calcium 9.1 mg/dL (8.4-10.2); Carbon Dioxide 23 mmol/L (22-29); Chloride 104 mmol/L (96-108); Cholesterol 166 mg/dL (<200); Creatinine Clr Calc Pharmacy 106.6; Estimated Glomerular Filt Rate > 60; Glucose Fasting 158 mg/dL (60-99); HDL Cholesterol 28 mg/dL (>40); LDL Cholesterol Calculated 100 mg/dL (<100); Potassium 4.3 mmol/L (3.3-5.1); Sodium 137 mmol/L (135-145); Total Protein 7.4 g/dL (6.5-8.0); Triglycerides 190 mg/dL (<150)
[2023-10-03] MEDS: Nicotine 21 MG PATCH.TD24 TRANSDERMA (08:55)
[2023-10-03] MEDS: metFORMIN HCl ER 500 MG TAB.ER.24H 1000 MG PO ×2 (08:56→16:57)
[2023-10-03] MEDS: SITagliptin Phosphate 100 MG TABLET PO (08:56)
[2023-10-03] MEDS: Cholecalciferol (Vitamin D3) 25 MCG TABLET 50 MCG PO (08:56)
[2023-10-03] MEDS: glipiZIDE 5 MG TABLET PO (08:56)
[2023-10-03] MEDS: DULoxetine HCl 30 MG CAPSULE.DR PO ×2 (08:56→22:27)
[2023-10-03] MEDS: buPROPion HCl XL 300 MG TAB.ER.24H PO (08:56)
[2023-10-03 09:05] LABS: Glucose, Whole Blood 172 mg/dL (60-115)
[2023-10-03] MEDS: oxyCODONE HCl Immed Release 5 MG TABLET PO ×2 (09:50→22:27)
--- NOTE | 2023-10-03 11:12 | PC.NURSE ---
Patient submitted 3 day note. Aware it does not take effect until 10/04 will be up 10/06.
[2023-10-03 17:48] LABS: Glucose, Whole Blood 227 mg/dL (60-115)
[2023-10-03 20:00] VITALS: BP 108/64; PULSE 104; RESP 16; TEMP 36.6; O2SAT 98
[2023-10-03] MEDS: traZODone HCL 100 MG TABLET PO (22:27)
--- NOTE | 2023-10-03 22:54 | PC.NURSE ---
Patient reporting back pain 01/19. Was given Oxycodone PO prn.
[2023-10-04 07:30] VITALS: BP 111/57; PULSE 100; RESP 14; TEMP 36.4; O2SAT 96
[2023-10-04] MEDS: SITagliptin Phosphate 100 MG TABLET PO (08:41)
[2023-10-04] MEDS: Cholecalciferol (Vitamin D3) 25 MCG TABLET 50 MCG PO (08:42)
[2023-10-04] MEDS: glipiZIDE 5 MG TABLET PO (08:42)
[2023-10-04] MEDS: DULoxetine HCl 30 MG CAPSULE.DR PO ×2 (08:43→21:37)
[2023-10-04] MEDS: buPROPion HCl XL 300 MG TAB.ER.24H PO (08:43)
[2023-10-04] MEDS: metFORMIN HCl ER 500 MG TAB.ER.24H 1000 MG PO ×2 (08:43→17:36)
[2023-10-04 08:51] LABS: Glucose, Whole Blood 177 mg/dL (60-115)
[2023-10-04] MEDS: oxyCODONE HCl Immed Release 5 MG TABLET PO ×2 (10:05→21:40)
--- NOTE | 2023-10-04 11:56 | HO.PSYCHPN ---
Subjective Subjective Date of Service: 10/04/23 Reason For Visit: Crisis Subjective Notes: 3 Day Interim History: Reviewed with Dr. Gordon. keeping to self. Pt reports feeling okay today; pt stated, I'm no longer feeling overwhelmed and depressed. It helped me being here . Pt reports he has court tomorrow for rent due and he will have to contact the courts to notify them of his hospitalization. Pt denies SI/HI/VH/AH. Medication Compliance: Yes Side effects from medications: No Attending Groups: No Review of Systems Constitutional: Reports as per HPI Eyes: Reports as per HPI Reports as per HPI Cardiovascular: Reports as per HPI Respiratory: Reports as per HPI Gastrointestinal: Reports as per HPI Genitourinary: Reports as per HPI Musculoskeletal: Reports as per HPI Skin/Breast: Reports as per HPI Reports as per HPI Psychiatric: Reports as per HPI Endocrine: Reports as per HPI Hematologic/Lymphatic: Reports as per HPI Allergic/Immunologic: Reports as per HPI Mental Status Exam Mental Status Exam Narrative: Pt is alert and oriented; behavior is cooperative and calm; dressed in casual attire; mood is described as okay ; eye contact appropriate; Speech is normal rate, volume and prosody and not pressured; thought process is organized and goal directed; Thought content is on tx; otherwise pertinent to relevant topics and without any delusional content, paranoid ideations or grandiosity; denies SI/HI/VH/AH. Diagnostics Vital Signs (24Hr): Vital Signs - 24 hr 10/03/23 20:00 10/04/23 07:30 Temperature 97.8 F 97.5 F Pulse Rate 104 H 100 Respiratory Rate 16 14 Blood Pressure 108/64 111/57 L Pulse Oximetry 98 96 Oxygen Delivery Method Room Air Room Air BMI result Body Mass Index 31.3 Labs 10/01/23 19:13 10/03/23 07:29 Labs: Laboratory Results - last 48 hr 10/02/23 10/03/23 10/03/23 20:57 07:29 08:56 Sodium 137 Potassium 4.3 Chloride 104 Carbon Dioxide 23 Anion Gap 14 BUN 16 Creatinine 0.87 Estim Creat Clear Calc 106.6 Estimated GFR > 60 POC Glucose 164 H 172 H Fasting Glucose 158 H Calcium 9.1 Total Bilirubin 0.3 AST 11 ALT 15 Alkaline Phosphatase 71 Total Protein 7.4 Albumin 3.9 Triglycerides 190 H Cholesterol 166 LDL Cholesterol, Calc 100 H HDL Cholesterol 28 L 10/03/23 10/04/23 16:56 08:41 Sodium Potassium Chloride Carbon Dioxide Anion Gap BUN Creatinine Estim Creat Clear Calc Estimated GFR POC Glucose 227 H 177 H Fasting Glucose Calcium Total Bilirubin AST ALT Alkaline Phosphatase Total Protein Albumin Triglycerides Cholesterol LDL Cholesterol, Calc HDL Cholesterol Medications Medications Current Medications Acetaminophen (Acetaminophen 325 Mg Tablet) 650 mg PO Q6H PRN PRN Reason: Headache/Pain Mild Scale (1-3) Al Hydroxide/Mg Hydroxide (Magnesium Hydrox/Alum Hydrox 30 Ml Oral.Susp) 30 ml PO Q6H PRN PRN Reason: Heartburn/Nausea Albuterol Sulfate (Albuterol Sulfate 90 Mcg 8 Gm Inhaler) 2 puff INHALE QID PRN PRN Reason: for wheezing Bupropion HCl (Bupropion Hcl Xl 300 Mg Tab.Er.24h) 300 mg PO DAILY [facility] Last Admin: 10/04/23 08:43 Dose: 300 mg Duloxetine HCl (Duloxetine Hcl 30 Mg Capsule.Dr) 30 mg PO BID [facility] Last Admin: 10/04/23 08:43 Dose: 30 mg Glipizide (Glipizide 5 Mg Tablet) 5 mg PO DAILY [facility] Last Admin: 10/04/23 08:42 Dose: 5 mg Hydroxyzine HCl (Hydroxyzine Hcl 25 Mg Tablet) 25 mg PO Q6H PRN PRN Reason: Anxiety Magnesium Hydroxide (Milk Of Magnesia 30 Ml Oral.Susp) 30 ml PO DAILY PRN PRN Reason: Constipation Metformin HCl (Metformin Hcl Er 500 Mg Tab.Er.24h) 1,000 mg PO BIDWM [facility] Last Admin: 10/04/23 08:43 Dose: 1,000 mg Nicotine (Nicotine 21 Mg Patch.Td24) 21 mg TRANSDERMA DAILY [facility] Last Admin: 10/04/23 08:43 Dose: Not Given Nicotine Polacrilex (Nicotine Polacrilex 2 Mg Gum) 4 mg BUCCAL Q2H PRN PRN Reason: Nicotine Cravings Oxycodone HCl (Oxycodone Hcl Immed Release 5 Mg Tablet) 5 mg PO BID PRN PRN Reason: Pain, Severe (Pain Scale 7-10) Last Admin: 10/04/23 10:05 Dose: 5 mg Sitagliptin Phosphate (Sitagliptin Phosphate 100 Mg Tablet) 100 mg PO DAILY [facility] Last Admin: 10/04/23 08:41 Dose: 100 mg Trazodone HCl (Trazodone Hcl 100 Mg Tablet) 100 mg PO BEDTIME [facility] Last Admin: 10/03/23 22:27 Dose: 100 mg Trazodone HCl (Trazodone Hcl 50 Mg Tablet) 50 mg PO BEDTIME MRX1 PRN PRN Reason: Insomnia Vitamin D (Cholecalciferol (Vitamin D3) 25 Mcg Tablet) 50 mcg PO DAILY [facility] Last Admin: 10/04/23 08:42 Dose: 50 mcg Allergies Allergies Allergy/AdvReac Type Severity Reaction Status Date / Time ibuprofen [From Motrin IB] Allergy Mild Nausea and Verified 07/23/23 11:03 Vomiting Assessment & Plan Assessment & Plan (1) MDD (major depressive disorder): Status: Acute Code(s): F32.9 - Major depressive disorder, single episode, unspecified Plan Patient is a 52 year old male with hx of MDD who presented to ER d/t suicidal ideation secondary to increased depression and life stressors. Plan: CV 15 minute safety checks continue home medication encourage groups discharge planning pt signed 3 day notice. 10/03: keeping to self. Pt reports feeling okay today; pt stated, I'm no longer feeling overwhelmed and depressed. It helped me being here . Pt reports he has court tomorrow for rent due and he will have to contact the courts to notify them of his hospitalization. Pt denies SI/HI/VH/AH. Patient educated on: diagnosis, medication risk/benefits and therapeutic strategies Informed Consent: understands Reason for continued inpatient stay Substantial Risk for: med/psych decompensation Time Spent With Patient Time: Total time managing care of this patient today _20___ minutes.
[2023-10-04 17:45] LABS: Glucose, Whole Blood 137 mg/dL (60-115)
[2023-10-04 18:00] VITALS: BP 131/75; PULSE 107; RESP 18; TEMP 36.7; O2SAT 95
[2023-10-04] MEDS: traZODone HCL 100 MG TABLET PO (21:37)
--- NOTE | 2023-10-05 04:50 | PC.NURSE ---
Juan Carlos was noted to be isolating throughout the evening, he denies all psych symptoms. he mentioned that he is concerned about 10/04 as he is scheduled to appear in housing court. patient stated he will need to call the court in the morning to inform them why he will not be at court. Patient reassured that staff would assist him as needed. No concerns noted at this time.monitor for safety, continue Plan of Care
[2023-10-05 07:50] VITALS: BP 118/65; PULSE 105; RESP 18; TEMP 36.5; O2SAT 96
[2023-10-05] MEDS: Cholecalciferol (Vitamin D3) 25 MCG TABLET 50 MCG PO (08:31)
[2023-10-05] MEDS: DULoxetine HCl 30 MG CAPSULE.DR PO ×2 (08:31→21:09)
[2023-10-05] MEDS: metFORMIN HCl ER 500 MG TAB.ER.24H 1000 MG PO ×2 (08:31→17:44)
[2023-10-05] MEDS: glipiZIDE 5 MG TABLET PO (08:31)
[2023-10-05] MEDS: buPROPion HCl XL 300 MG TAB.ER.24H PO (08:31)
[2023-10-05] MEDS: SITagliptin Phosphate 100 MG TABLET PO (08:32)
[2023-10-05 08:37] LABS: Glucose, Whole Blood 167 mg/dL (60-115)
[2023-10-05] MEDS: oxyCODONE HCl Immed Release 5 MG TABLET PO ×2 (09:06→21:09)
--- NOTE | 2023-10-05 10:05 | HO.PSYCHPN ---
Subjective Subjective Date of Service: 10/05/23 Reason For Visit: Crisis Subjective Notes: 3 Day Interim History: Reviewed with Dr. Gordon. keeping to self, laying in bed most of the morning. Pt reports feeling good today; pt stated, I feel better now. I'm not interested in going to groups . Pt denies SI/HI/VH/AH. Pt reports he plans on following up with his outpatient providers when discharged. Medication Compliance: Yes Side effects from medications: No Attending Groups: No Review of Systems Constitutional: Reports as per HPI Eyes: Reports as per HPI Reports as per HPI Cardiovascular: Reports as per HPI Respiratory: Reports as per HPI Gastrointestinal: Reports as per HPI Genitourinary: Reports as per HPI Musculoskeletal: Reports as per HPI Skin/Breast: Reports as per HPI Reports as per HPI Psychiatric: Reports as per HPI Endocrine: Reports as per HPI Hematologic/Lymphatic: Reports as per HPI Allergic/Immunologic: Reports as per HPI Mental Status Exam Mental Status Exam Narrative: Pt is alert and oriented; behavior is cooperative and calm; dressed in casual attire; mood is described as okay ; eye contact appropriate; Speech is normal rate, volume and prosody and not pressured; thought process is organized and goal directed; Thought content is on tx; otherwise pertinent to relevant topics and without any delusional content, paranoid ideations or grandiosity; denies SI/HI/VH/AH. Diagnostics Vital Signs (24Hr): Vital Signs - 24 hr 10/04/23 18:00 10/05/23 07:50 Temperature 98.0 F 97.7 F Pulse Rate 107 H 105 H Respiratory Rate 18 18 Blood Pressure 131/75 118/65 Pulse Oximetry 95 96 Oxygen Delivery Method Room Air Room Air BMI result Body Mass Index 31.3 Labs 10/01/23 19:13 10/03/23 07:29 Labs: Laboratory Results - last 48 hr 10/03/23 10/04/23 10/04/23 16:56 08:41 17:39 POC Glucose 227 H 177 H 137 H 10/05/23 08:33 POC Glucose 167 H Medications Medications Current Medications Acetaminophen (Acetaminophen 325 Mg Tablet) 650 mg PO Q6H PRN PRN Reason: Headache/Pain Mild Scale (1-3) Al Hydroxide/Mg Hydroxide (Magnesium Hydrox/Alum Hydrox 30 Ml Oral.Susp) 30 ml PO Q6H PRN PRN Reason: Heartburn/Nausea Albuterol Sulfate (Albuterol Sulfate 90 Mcg 8 Gm Inhaler) 2 puff INHALE QID PRN PRN Reason: for wheezing Bupropion HCl (Bupropion Hcl Xl 300 Mg Tab.Er.24h) 300 mg PO DAILY [facility] Last Admin: 10/05/23 08:31 Dose: 300 mg Duloxetine HCl (Duloxetine Hcl 30 Mg Capsule.Dr) 30 mg PO BID [facility] Last Admin: 10/05/23 08:31 Dose: 30 mg Glipizide (Glipizide 5 Mg Tablet) 5 mg PO DAILY [facility] Last Admin: 10/05/23 08:31 Dose: 5 mg Hydroxyzine HCl (Hydroxyzine Hcl 25 Mg Tablet) 25 mg PO Q6H PRN PRN Reason: Anxiety Magnesium Hydroxide (Milk Of Magnesia 30 Ml Oral.Susp) 30 ml PO DAILY PRN PRN Reason: Constipation Metformin HCl (Metformin Hcl Er 500 Mg Tab.Er.24h) 1,000 mg PO BIDWM [facility] Last Admin: 10/05/23 08:31 Dose: 1,000 mg Nicotine (Nicotine 21 Mg Patch.Td24) 21 mg TRANSDERMA DAILY [facility] Last Admin: 10/05/23 08:32 Dose: Not Given Nicotine Polacrilex (Nicotine Polacrilex 2 Mg Gum) 4 mg BUCCAL Q2H PRN PRN Reason: Nicotine Cravings Oxycodone HCl (Oxycodone Hcl Immed Release 5 Mg Tablet) 5 mg PO BID PRN PRN Reason: Pain, Severe (Pain Scale 7-10) Last Admin: 10/05/23 09:06 Dose: 5 mg Sitagliptin Phosphate (Sitagliptin Phosphate 100 Mg Tablet) 100 mg PO DAILY [facility] Last Admin: 10/05/23 08:32 Dose: 100 mg Trazodone HCl (Trazodone Hcl 100 Mg Tablet) 100 mg PO BEDTIME [facility] Last Admin: 10/04/23 21:37 Dose: 100 mg Trazodone HCl (Trazodone Hcl 50 Mg Tablet) 50 mg PO BEDTIME MRX1 PRN PRN Reason: Insomnia Vitamin D (Cholecalciferol (Vitamin D3) 25 Mcg Tablet) 50 mcg PO DAILY [facility] Last Admin: 10/05/23 08:31 Dose: 50 mcg Allergies Allergies Allergy/AdvReac Type Severity Reaction Status Date / Time ibuprofen [From Motrin IB] Allergy Mild Nausea and Verified 07/23/23 11:03 Vomiting Assessment & Plan Assessment & Plan (1) MDD (major depressive disorder): Status: Acute Code(s): F32.9 - Major depressive disorder, single episode, unspecified Plan Patient is a 52 year old male with hx of MDD who presented to ER d/t suicidal ideation secondary to increased depression and life stressors. Plan: CV 15 minute safety checks continue home medication encourage groups discharge planning pt signed 3 day notice. 10/03: keeping to self. Pt reports feeling okay today; pt stated, I'm no longer feeling overwhelmed and depressed. It helped me being here . Pt reports he has court tomorrow for rent due and he will have to contact the courts to notify them of his hospitalization. Pt denies SI/HI/VH/AH. 10/04: keeping to self, laying in bed most of the morning. Pt reports feeling good today; pt stated, I feel better now. I'm not interested in going to groups . Pt denies SI/HI/VH/AH. Pt reports he plans on following up with his outpatient providers when discharged. continue current tx plan. Patient educated on: diagnosis, medication risk/benefits and therapeutic strategies Informed Consent: understands Reason for continued inpatient stay Substantial Risk for: med/psych decompensation Time Spent With Patient Time: Total time managing care of this patient today _20___ minutes.
[2023-10-05 17:41] LABS: Glucose, Whole Blood 142 mg/dL (60-115)
[2023-10-05 18:00] VITALS: BP 135/77; PULSE 96; RESP 20; TEMP 36.8; O2SAT 97
[2023-10-05] MEDS: traZODone HCL 100 MG TABLET PO (21:10)
[2023-10-06 07:45] VITALS: BP 114/68; PULSE 90; RESP 16; TEMP 36.4; O2SAT 95
[2023-10-06 08:40] LABS: Glucose, Whole Blood 162 mg/dL (60-115)
[2023-10-06] MEDS: buPROPion HCl XL 300 MG TAB.ER.24H PO (08:51)
[2023-10-06] MEDS: oxyCODONE HCl Immed Release 5 MG TABLET PO ×2 (08:51→21:27)
[2023-10-06] MEDS: DULoxetine HCl 30 MG CAPSULE.DR PO ×2 (08:51→21:28)
[2023-10-06] MEDS: glipiZIDE 5 MG TABLET PO (08:51)
[2023-10-06] MEDS: metFORMIN HCl ER 500 MG TAB.ER.24H 1000 MG PO ×2 (08:51→18:12)
[2023-10-06] MEDS: Cholecalciferol (Vitamin D3) 25 MCG TABLET 50 MCG PO (08:51)
[2023-10-06] MEDS: SITagliptin Phosphate 100 MG TABLET PO (08:53)
--- NOTE | 2023-10-06 09:14 | HO.PSYCHPN ---
Subjective Subjective Date of Service: 10/06/23 Reason For Visit: Crisis Subjective Notes: 3 Day Interim History: Reviewed with Dr. Gordon. Pt reports feeling good today; pt stated, I feel ready to go back to my apartment. I'm going to do my best to not let stress get to me. I'll be fine . Pt denies SI/HI/VH/AH. Pt reports he plans on following up with his outpatient providers when discharged. Pt to be discharged tomorrow on 3 day. Medication Compliance: Yes Side effects from medications: No Attending Groups: No Review of Systems Constitutional: Reports as per HPI Eyes: Reports as per HPI Reports as per HPI Cardiovascular: Reports as per HPI Respiratory: Reports as per HPI Gastrointestinal: Reports as per HPI Genitourinary: Reports as per HPI Musculoskeletal: Reports as per HPI Skin/Breast: Reports as per HPI Reports as per HPI Psychiatric: Reports as per HPI Endocrine: Reports as per HPI Hematologic/Lymphatic: Reports as per HPI Allergic/Immunologic: Reports as per HPI Mental Status Exam Mental Status Exam Narrative: Pt is alert and oriented; behavior is cooperative and calm; dressed in casual attire; mood is described as good ; eye contact appropriate; Speech is normal rate, volume and prosody and not pressured; thought process is organized and goal directed; Thought content is on tx; otherwise pertinent to relevant topics and without any delusional content, paranoid ideations or grandiosity; denies SI/HI/VH/AH. Diagnostics Vital Signs (24Hr): Vital Signs - 24 hr 10/05/23 18:00 10/06/23 07:45 Temperature 98.2 F 97.5 F Pulse Rate 96 90 Respiratory Rate 20 16 Blood Pressure 135/77 114/68 Pulse Oximetry 97 95 Oxygen Delivery Method Room Air Room Air BMI result Body Mass Index 31.3 Labs 10/01/23 19:13 10/03/23 07:29 Labs: Laboratory Results - last 48 hr 10/04/23 10/05/23 10/05/23 17:39 08:33 17:35 POC Glucose 137 H 167 H 142 H 10/06/23 08:35 POC Glucose 162 H Medications Medications Current Medications Acetaminophen (Acetaminophen 325 Mg Tablet) 650 mg PO Q6H PRN PRN Reason: Headache/Pain Mild Scale (1-3) Al Hydroxide/Mg Hydroxide (Magnesium Hydrox/Alum Hydrox 30 Ml Oral.Susp) 30 ml PO Q6H PRN PRN Reason: Heartburn/Nausea Albuterol Sulfate (Albuterol Sulfate 90 Mcg 8 Gm Inhaler) 2 puff INHALE QID PRN PRN Reason: for wheezing Bupropion HCl (Bupropion Hcl Xl 300 Mg Tab.Er.24h) 300 mg PO DAILY [facility] Last Admin: 10/06/23 08:51 Dose: 300 mg Duloxetine HCl (Duloxetine Hcl 30 Mg Capsule.Dr) 30 mg PO BID [facility] Last Admin: 10/06/23 08:51 Dose: 30 mg Glipizide (Glipizide 5 Mg Tablet) 5 mg PO DAILY [facility] Last Admin: 10/06/23 08:51 Dose: 5 mg Hydroxyzine HCl (Hydroxyzine Hcl 25 Mg Tablet) 25 mg PO Q6H PRN PRN Reason: Anxiety Magnesium Hydroxide (Milk Of Magnesia 30 Ml Oral.Susp) 30 ml PO DAILY PRN PRN Reason: Constipation Metformin HCl (Metformin Hcl Er 500 Mg Tab.Er.24h) 1,000 mg PO BIDWM [facility] Last Admin: 10/06/23 08:51 Dose: 1,000 mg Nicotine (Nicotine 21 Mg Patch.Td24) 21 mg TRANSDERMA DAILY [facility] Last Admin: 10/06/23 08:51 Dose: Not Given Nicotine Polacrilex (Nicotine Polacrilex 2 Mg Gum) 4 mg BUCCAL Q2H PRN PRN Reason: Nicotine Cravings Oxycodone HCl (Oxycodone Hcl Immed Release 5 Mg Tablet) 5 mg PO BID PRN PRN Reason: Pain, Severe (Pain Scale 7-10) Last Admin: 10/06/23 08:51 Dose: 5 mg Sitagliptin Phosphate (Sitagliptin Phosphate 100 Mg Tablet) 100 mg PO DAILY [facility] Last Admin: 10/06/23 08:53 Dose: 100 mg Trazodone HCl (Trazodone Hcl 100 Mg Tablet) 100 mg PO BEDTIME [facility] Last Admin: 10/05/23 21:10 Dose: 100 mg Trazodone HCl (Trazodone Hcl 50 Mg Tablet) 50 mg PO BEDTIME MRX1 PRN PRN Reason: Insomnia Vitamin D (Cholecalciferol (Vitamin D3) 25 Mcg Tablet) 50 mcg PO DAILY [facility] Last Admin: 10/06/23 08:51 Dose: 50 mcg Allergies Allergies Allergy/AdvReac Type Severity Reaction Status Date / Time ibuprofen [From Motrin IB] Allergy Mild Nausea and Verified 07/23/23 11:03 Vomiting Assessment & Plan Assessment & Plan (1) MDD (major depressive disorder): Status: Acute Code(s): F32.9 - Major depressive disorder, single episode, unspecified Plan Patient is a 52 year old male with hx of MDD who presented to ER d/t suicidal ideation secondary to increased depression and life stressors. Plan: CV 15 minute safety checks continue home medication encourage groups discharge planning pt signed 3 day notice. 10/03: keeping to self. Pt reports feeling okay today; pt stated, I'm no longer feeling overwhelmed and depressed. It helped me being here . Pt reports he has court tomorrow for rent due and he will have to contact the courts to notify them of his hospitalization. Pt denies SI/HI/VH/AH. 10/04: keeping to self, laying in bed most of the morning. Pt reports feeling good today; pt stated, I feel better now. I'm not interested in going to groups . Pt denies SI/HI/VH/AH. Pt reports he plans on following up with his outpatient providers when discharged. continue current tx plan. 10/05: Pt reports feeling good today; pt stated, I feel ready to go back to my apartment. I'm going to do my best to not let stress get to me. I'll be fine . Pt denies SI/HI/VH/AH. Pt reports he plans on following up with his outpatient providers when discharged. Pt to be discharged tomorrow on 3 day. Patient educated on: diagnosis, medication risk/benefits and therapeutic strategies Informed Consent: understands Reason for continued inpatient stay Substantial Risk for: stable for discharge Time Spent With Patient Time: Total time managing care of this patient today _20___ minutes.
[2023-10-06] MEDS: traZODone HCL 50 MG TABLET PO (21:27)
[2023-10-06] MEDS: traZODone HCL 100 MG TABLET PO (21:28)
[2023-10-06 21:34] VITALS: BP 111/70; PULSE 107; RESP 18; TEMP 36.6; O2SAT 97
[2023-10-06 21:37] LABS: Glucose, Whole Blood 147 mg/dL (60-115)
[2023-10-07 08:33] LABS: Glucose, Whole Blood 154 mg/dL (60-115)
[2023-10-07] MEDS: SITagliptin Phosphate 100 MG TABLET PO (09:03)
[2023-10-07] MEDS: buPROPion HCl XL 300 MG TAB.ER.24H PO (09:03)
[2023-10-07] MEDS: Cholecalciferol (Vitamin D3) 25 MCG TABLET 50 MCG PO (09:03)
[2023-10-07] MEDS: metFORMIN HCl ER 500 MG TAB.ER.24H 1000 MG PO (09:03)
[2023-10-07] MEDS: glipiZIDE 5 MG TABLET PO (09:03)
[2023-10-07] MEDS: DULoxetine HCl 30 MG CAPSULE.DR PO (09:07)
--- NOTE | 2023-10-07 09:25 | PM.PSYDC ---
DS: Providers Provider Date of Service: 10/07/23 Date of admission: 10/02/23 11:29 Date of discharge: 10/07/23 Primary care physician: Aung Astorga MD Admitting clinician: Gail Schaefer Attending physician on admission: Leland Gordon Attending physician on discharge: Leland Gordon Discharging clinician: Gail Schaefer DS: Diagnosis Discharge Diagnosis (1) MDD (major depressive disorder): Status: Acute DS: Medications Discharge Medications Home Medications: Home Medications Medication Instructions Recorded Confirmed bupropion HCl 300 mg 24 hr tablet, 300 mg PO DAILY 10/01/23 10/01/23 extended release duloxetine 30 mg capsule,delayed 30 mg PO BID 10/01/23 10/01/23 release trazodone 100 mg tablet 100 mg PO BEDTIME 10/01/23 10/01/23 Previous Rx's Medication Instructions Recorded blood sugar diagnostic #100 ea 04/18/22 blood-glucose meter #1 ea 04/18/22 lancets 30 gauge (BD Ultra-Fine II #100 ea 04/18/22 Lancets) sitagliptin phosphate 100 mg 100 mg PO DAILY #90 tabs 02/04/23 tablet (Januvia) cholecalciferol (vitamin D3) 50 50 mcg PO DAILY #90 tabs 03/11/23 mcg (2,000 unit) tablet (Vitamin D3) glimepiride 2 mg tablet 2 mg PO QAM 90 days #90 tabs 03/11/23 metformin 500 mg tablet,extended 1,000 mg (2 x 500 mg) PO BID #360 06/18/23 release 24 hr tabs albuterol sulfate 90 mcg/actuation 2 puff PO QID PRN for wheezing 09/30/23 aerosol inhaler #8.5 grams oxycodone-acetaminophen 5 mg-325 See Rx Instructions PO .COMPLEX 09/30/23 mg tablet PRN pain 30 days #10 tabs Mental Status Exam Mental Status Exam Narrative: Pt is alert and oriented; behavior is cooperative and calm; dressed in casual attire; mood is described as good ; eye contact appropriate; Speech is normal rate, volume and prosody and not pressured; thought process is organized and goal directed; Thought content is on tx; otherwise pertinent to relevant topics and without any delusional content, paranoid ideations or grandiosity; denies SI/HI/VH/AH. Data Data Completed and Pending Completed studies during hospitalization [Text1]: 10/01/23 10/02/23 10/02/23 19:13 02:39 06:32 WBC 11.7 H RBC 4.95 Hgb 13.2 L Hct 39.5 L MCV 79.8 L MCH 26.7 L MCHC 33.4 RDW 14.3 Plt Count 362 MPV 9.2 L Immature Gran % (Auto) 0.4 Neut % (Auto) 64.1 Lymph % (Auto) 21.7 Moca % (Auto) 11.9 H Eos % (Auto) 1.4 Baso % (Auto) 0.5 Lymph # (Auto) 2.5 Moca # (Auto) 1.4 H Eos # (Auto) 0.2 Baso # (Auto) 0.1 Abs Immat Gran (auto) 0.05 H Absolute Neuts (auto) 7.5 Absolute Nucleated RBC 0.000 Nucleated RBC % (auto) 0.0 Sodium 140 Potassium 3.7 Chloride 104 Carbon Dioxide 25 Anion Gap 15 BUN 14 Creatinine 0.95 Estim Creat Clear Calc 97.7 Estimated GFR > 60 POC Glucose Random Glucose 205 H Fasting Glucose Calcium 9.5 Magnesium 1.8 Total Bilirubin 0.2 AST 11 ALT 13 Alkaline Phosphatase 75 Total Protein 7.4 Albumin 3.9 Triglycerides Cholesterol LDL Cholesterol, Calc HDL Cholesterol Urine Color Yellow Urine Appearance Clear Urine pH 6.0 Ur Specific [place] 1.025 Urine Protein Negative Urine Glucose (UA) Negative Urine Ketones Negative Urine Blood Negative Urine Nitrite Negative Ur Leukocyte Esterase Negative Urine Opiates Screen Not Detected Urine Fentanyl Screen Not Detected Ur Barbiturates Screen Not Detected Ur Phencyclidine Scrn Not Detected Ur Amphetamines Screen Not Detected U Benzodiazepines Scrn Not Detected Urine Cocaine Screen Not Detected U Marijuana (THC) Screen Not Detected Ethyl Alcohol < 10 COVID-19 ([facility]RINA) Negative COVID-19 Clin Com See Note 10/02/23 10/02/23 10/03/23 11:41 20:57 07:29 WBC RBC Hgb Hct MCV MCH MCHC RDW Plt Count MPV Immature Gran % (Auto) Neut % (Auto) Lymph % (Auto) Moca % (Auto) Eos % (Auto) Baso % (Auto) Lymph # (Auto) Moca # (Auto) Eos # (Auto) Baso # (Auto) Abs Immat Gran (auto) Absolute Neuts (auto) Absolute Nucleated RBC Nucleated RBC % (auto) Sodium 137 Potassium 4.3 Chloride 104 Carbon Dioxide 23 Anion Gap 14 BUN 16 Creatinine 0.87 Estim Creat Clear Calc 106.6 Estimated GFR > 60 POC Glucose 91 164 H Random Glucose Fasting Glucose 158 H Calcium 9.1 Magnesium Total Bilirubin 0.3 AST 11 ALT 15 Alkaline Phosphatase 71 Total Protein 7.4 Albumin 3.9 Triglycerides 190 H Cholesterol 166 LDL Cholesterol, Calc 100 H HDL Cholesterol 28 L Urine Color Urine Appearance Urine pH Ur Specific [place] Urine Protein Urine Glucose (UA) Urine Ketones Urine Blood Urine Nitrite Ur Leukocyte Esterase Urine Opiates Screen Urine Fentanyl Screen Ur Barbiturates Screen Ur Phencyclidine Scrn Ur Amphetamines Screen U Benzodiazepines Scrn Urine Cocaine Screen U Marijuana (THC) Screen Ethyl Alcohol COVID-19 ([facility]) COVIDPowered by [employer] 10/03/23 10/03/23 10/04/23 08:56 16:56 08:41 WBC RBC Hgb Hct MCV MCH MCHC RDW Plt Count MPV Immature Gran % (Auto) Neut % (Auto) Lymph % (Auto) Moca % (Auto) Eos % (Auto) Baso % (Auto) Lymph # (Auto) Moca # (Auto) Eos # (Auto) Baso # (Auto) Abs Immat Gran (auto) Absolute Neuts (auto) Absolute Nucleated RBC Nucleated RBC % (auto) Sodium Potassium Chloride Carbon Dioxide Anion Gap BUN Creatinine Estim Creat Clear Calc Estimated GFR POC Glucose 172 H 227 H 177 H Random Glucose Fasting Glucose Calcium Magnesium Total Bilirubin AST ALT Alkaline Phosphatase Total Protein Albumin Triglycerides Cholesterol LDL Cholesterol, Calc HDL Cholesterol Urine Color Urine Appearance Urine pH Ur Specific [place] Urine Protein Urine Glucose (UA) Urine Ketones Urine Blood Urine Nitrite Ur Leukocyte Esterase Urine Opiates Screen Urine Fentanyl Screen Ur Barbiturates Screen Ur Phencyclidine Scrn Ur Amphetamines Screen U Benzodiazepines Scrn Urine Cocaine Screen U Marijuana (THC) Screen Ethyl Alcohol COVID-19 ([facility]) COVID-[employer] 10/04/23 10/05/23 10/05/23 17:39 08:33 17:35 WBC RBC Hgb Hct MCV MCH MCHC RDW Plt Count MPV Immature Gran % (Auto) Neut % (Auto) Lymph % (Auto) Moca % (Auto) Eos % (Auto) Baso % (Auto) Lymph # (Auto) Moca # (Auto) Eos # (Auto) Baso # (Auto) Abs Immat Gran (auto) Absolute Neuts (auto) Absolute Nucleated RBC Nucleated RBC % (auto) Sodium Potassium Chloride Carbon Dioxide Anion Gap BUN Creatinine Estim Creat Clear Calc Estimated GFR POC Glucose 137 H 167 H 142 H Random Glucose Fasting Glucose Calcium Magnesium Total Bilirubin AST ALT Alkaline Phosphatase Total Protein Albumin Triglycerides Cholesterol LDL Cholesterol, Calc HDL Cholesterol Urine Color Urine Appearance Urine pH Ur Specific [place] Urine Protein Urine Glucose (UA) Urine Ketones Urine Blood Urine Nitrite Ur Leukocyte Esterase Urine Opiates Screen Urine Fentanyl Screen Ur Barbiturates Screen Ur Phencyclidine Scrn Ur Amphetamines Screen U Benzodiazepines Scrn Urine Cocaine Screen U Marijuana (THC) Screen Ethyl Alcohol COVID-19 ([facility]) COVID-19 [facility] 10/06/23 10/06/23 10/07/23 08:35 21:26 08:29 WBC RBC Hgb Hct MCV MCH MCHC RDW Plt Count MPV Immature Gran % (Auto) Neut % (Auto) Lymph % (Auto) Moca % (Auto) Eos % (Auto) Baso % (Auto) Lymph # (Auto) Moca # (Auto) Eos # (Auto) Baso # (Auto) Abs Immat Gran (auto) Absolute Neuts (auto) Absolute Nucleated RBC Nucleated RBC % (auto) Sodium Potassium Chloride Carbon Dioxide Anion Gap BUN Creatinine Estim Creat Clear Calc Estimated GFR POC Glucose 162 H 147 H 154 H Random Glucose Fasting Glucose Calcium Magnesium Total Bilirubin AST ALT Alkaline Phosphatase Total Protein Albumin Triglycerides Cholesterol LDL Cholesterol, Calc HDL Cholesterol Urine Color Urine Appearance Urine pH Ur Specific [place] Urine Protein Urine Glucose (UA) Urine Ketones Urine Blood Urine Nitrite Ur Leukocyte Esterase Urine Opiates Screen Urine Fentanyl Screen Ur Barbiturates Screen Ur Phencyclidine Scrn Ur Amphetamines Screen U Benzodiazepines Scrn Urine Cocaine Screen U Marijuana (THC) Screen Ethyl Alcohol COVID-19 ([facility]) COVID-19 [facility] DS: Summary Hospital Course Hospital Course: Patient is a 52 year old male with hx of MDD who presented to ER d/t suicidal ideation secondary to increased depression and life stressors. Per crisis report, pt reported being at [facility] and was thinking of jumping. He reports a man who was fishing intervened and talked him into coming to ER. Pt reported auditory hallucinations to jump off his porch at his apartment. He reported feeling overwhelmed by stressors and being behind on rent, having to go to housing court, and having car troubles. During admission assessment, pt presents calm and cooperative. Pt reports he came to the ER because there was a lot going on in my head and I wanted to kill myself . Pt stated, there has been a lot of family issues where my family in [place] has been talking shit about my family here. I just wanted to be left alone. I got overwhelmed and was stressed. I don't want to . When asked about auditory and visual hallucinations, pt stated, I told them I had voices months ago, not recently . pt denies any substance use. He reports medication compliance. Pt denies SI/HI/VH/AH. pt asked to sign 3 day notice when assessment was complete; RN reviewed 3 day notice with pt. During hospital course, CV 15 minute safety checks continue home medication encourage groups discharge planning pt signed 3 day notice. keeping to self. Pt reports feeling okay today; pt stated, I'm no longer feeling overwhelmed and depressed. It helped me being here . Pt reports he has court tomorrow for rent due and he will have to contact the courts to notify them of his hospitalization. Pt denies SI/HI/VH/AH. Pt reports feeling good today; pt stated, I feel better now. I'm not interested in going to groups . Pt denies SI/HI/VH/AH. Pt reports he plans on following up with his outpatient providers when discharged. continue current tx plan. Pt reports feeling good today; pt stated, I feel ready to go back to my apartment. I'm going to do my best to not let stress get to me. I'll be fine . Pt denies SI/HI/VH/AH. Pt reports he plans on following up with his outpatient providers when discharged. Pt to be discharged on 3 day. Time spent discussing smoking cessation with patient: 3 to 10 minutes Status at Discharge Cognitive/behavioral status at discharge: Patient was interviewed prior to discharge and found to be fully oriented and without any SI or HI. Patient has insight and demonstrates good judgment in terms of wanting to pursue treatment. Patient has a safety plan that includes presenting to the closest ER or calling 911 if feeling unsafe. Functional status at discharge: independent ambulation Overall status at discharge: patient is back to baseline Time Spent with Patient Time attestation: Total time managing care of this patient today _30___ minutes. Time spent: Less than 30 minutes Discharge Plan Discharge Anticipated Discharge Date/Time: 10/07/23 11:00 Patient Disposition: Home, Self-Care Discharge Diagnosis: MDD Referrals: Therapy: Marion Castellanos ([facility]) [Other] - 10/16/23 4:30 pm (Telehealth ) Psych Prescriber: Emmanuel Bellamy ([facility]) [Other] - 10/19/23 8:00 am (Telehealth ) Aung Astorga MD [Primary Care Provider] - 1 Week Discharge Medications: Continued (DME) blood sugar diagnostic Strip See Rx Instructions .ROUTE .MEDSUPPLY Qty: 100 1RF Rx Instructions: bid (DME) blood-glucose meter Kit See Rx Instructions .ROUTE .MEDSUPPLY Qty: 1 0RF Rx Instructions: test twice a day (DME) lancets [BD Ultra-Fine II Lancets] 30 gauge misc See Rx Instructions .ROUTE .MEDSUPPLY Qty: 100 1RF Rx Instructions: twice a day Januvia 100 mg tablet 100 mg PO DAILY Qty: 90 1RF cholecalciferol (vitamin D3) [Vitamin D3] 50 mcg (2,000 unit) tablet 50 mcg PO DAILY Qty: 90 2RF glimepiride 2 mg tablet 2 mg PO QAM 90 Days Qty: 90 1RF metformin 500 mg tablet extended release 24 hr 1,000 mg PO BID Qty: 360 1RF albuterol sulfate 90 mcg/actuation HFA aerosol inhaler 2 puff PO QID PRN (Reason: for wheezing) Qty: 8.5 3RF oxycodone-acetaminophen 5-325 mg tablet See Rx Instructions PO .COMPLEX PRN (Reason: pain) 30 Days Qty: 10 0RF Rx Instructions: 1 tablet orally 1 to 2 times a day as needed only for severe pain bupropion HCl 300 mg tablet extended release 24 hr 300 mg PO DAILY duloxetine 30 mg capsule,delayed release(DR/EC) 30 mg PO BID trazodone 100 mg tablet 100 mg PO BEDTIME Discharge Orders: Discharge Order (Routine); Ordered 10/07/23 Ordered By: Gail Schaefer Diet: Regular diet Activity on Discharge: As tolerated Stand Alone Forms: Patient Portal Discharge page, Community Support Care Plan Goals: Maintain mood and safe behaviors Take medications as prescribed Practice coping skills Continue with outpatient providers and reach out to them as needed Health Concerns: Mood stability and behaviors Plan of Treatment: Follow up with your PCP, psychiatric provider and other outpatient providers regarding above concerns Take medications as prescribed Assessment: Patient was interviewed prior to discharge and found to be fully oriented and without any SI or HI. Patient has insight and demonstrates good judgment in terms of wanting to pursue treatment. Patient has a safety plan that includes presenting to the closest ER or calling 911 if feeling unsafe. Discharge Date/Time: 10/07/23 11:00
[2023-10-07 11:00] VITALS: BP 118/60; PULSE 100; RESP 18; TEMP 36.8; O2SAT 96
== END 2023-10-07 11:00 | disposition home or self-care (01) | DRG 881 ==
LOC: HO.ED 19:04 → HO.PADLT16 10-02 12:18
PROVIDERS: Physician Assistant; Student in an Organized Health Care Education/Training Program; Admitting Provider Registered Nurse; Emergency Provider Internal Medicine; PCP Internal Medicine; Responsible Provider Registered Nurse; Visit Provider Psychiatry & Neurology Psychiatry
DX: F32.9 Major depressive disorder, single episode, unspecified (principal); R45.851 Suicidal ideations; E78.2 Mixed hyperlipidemia; E11.9 Type 2 diabetes mellitus without complications; F17.210 Nicotine dependence, cigarettes, uncomplicated; Z20.822 Contact with and (suspected) exposure to COVID-19; Z71.6 Tobacco abuse counseling; Z79.84 Long term (current) use of oral hypoglycemic drugs; Z79.899 Other long term (current) drug therapy
CPT/HCPCS: 36415; 80053; 80061; 80307; 81003; 82947; 83735; 85025; 87635; 93005; 99285; S9485

== ENCOUNTER → 2023-10-02 08:48 | Outpatient (BNV) | payer OTHER, SELFPAY | PROVIDERS: Admitting Provider Registered Nurse; Emergency Provider Internal Medicine; PCP Internal Medicine; Visit Provider Internal Medicine | DX: F32.A Depression, unspecified (principal) | CPT/HCPCS: 93010 ==

== ENCOUNTER → 2023-10-02 11:29 | Outpatient (BNV) | payer OTHER, SELFPAY | PROVIDERS: Admitting Provider Registered Nurse; Emergency Provider Internal Medicine; PCP Internal Medicine; Responsible Provider Registered Nurse; Visit Provider Registered Nurse | DX: F32.2 Major depressive disorder, single episode, severe without psychotic features (principal) | CPT/HCPCS: 90792; 99231; 99232; 99238 ==

== ENCOUNTER 2023-11-02 10:22 | Outpatient (AMB) | payer OTHER, SELFPAY ==
--- NOTE | 2023-11-02 10:32 | A.OFFPC_ITS ---
Vital Signs 11/02/23 10:33 Height 5 ft 11 in Weight 196 lb 6 oz BMI 27.4 BP 116/66 Blood Pressure Location Lt brachial Position Sitting Pulse 94 Pulse Source Pulse Oximeter Pulse Oximetry (%) 96 Oxygen Delivery Method Room Air Intake Visit Reasons: 3 month f/u- see comments Intake Note: Patient is here to follow up on DM, MDD, HLD. Tablet Machine Operator Required: No Manager Cardiovascular: Not Required per policy Accompanied by: Self / Same As Patient Allergies ibuprofen [From Motrin IB] Allergy (Mild, Verified 11/02/23 11:21) Nausea and Vomiting Medication List - Last Reconciled 11/02/23 by Aung Astorga MD albuterol sulfate 90 mcg/actuation 2 puffs PO QID PRN blood sugar diagnostic bid blood-glucose meter test twice a day bupropion HCl XL 300 mg PO DAILY cholecalciferol (vitamin D3) (Vitamin D3) 50 mcg PO DAILY duloxetine 30 mg PO BID glimepiride 2 mg PO QAM 90 days lancets (BD Ultra-Fine II Lancets) twice a day metformin ER 1,000 mg (2 x 500 mg) PO BID oxycodone-acetaminophen 5-325 mg 1 tablet orally 1 to 2 times a day as needed only for severe pain 30 days sitagliptin phosphate (Januvia) 100 mg PO DAILY trazodone 100 mg PO BEDTIME Tobacco use date assessed: 11/02/23 Dental Screening Dental Screen Date: 07/23/23 HPI 3 month f/u- see comments HPI Details Patient comes in today for his follow up visit States that he feels okay but reports experiencing increasing cough and congestion lately; cough is mostly non-productive He denies any fever or sore throat He denies any headaches or dizziness Denies any chest pains, no SOB No nausea/vomiting, no abdominal pain No change in bowel habits noted He still has recurrent low back pain and joint pains but states that these are mostly manageable with his current meds He has not been able to get his follow up labs done recently [facility] Medical History Otitis externa Overweight (BMI 25.0-29.9) Smoker Insomnia Right hydrocele Vitamin D deficiency Lumbar degenerative disc disease Mixed dyslipidemia Diabetes mellitus Surgical History History of surgery History of hydrocelectomy History of ear surgery History of extraction of renal calculus Family History Father Medical history unknown Mother Cancer Social History Household Members: None Housing: Apartment Do you presently have visiting nurse or other home services: No Alcohol intake: former Patient Tobacco Use Status: Current everyday Tobacco user Tobacco use type: Cigarette Cigarette Packs Per Day: 0.5 Cigarettes Per Day: 5 Years Smoked: 20 e-Cigarette/Vaping Use: Never Used Second Hand Smoke Exposure: Yes service: No Current occupational status: retired Sexual orientation: Straight/Heterosexual Cognitive needs: No Hearing needs: No Vision needs: No Questionnaire Thrive Questionnaire Date Thrive assessed: 10/05/23 ED-7 AMB Questionnaire ED-7 Date ED - 7 assessed: 07/23/23 Source: Developed by Drs. Travis Davis, Nirmala Prieto, Tirso Quintana and colleagues, with an educational dino from [employer]. Review of Systems Const Denies chills, Denies fatigue, Denies fever(s) and Denies headache(s) ENT Denies dysphagia, Denies dizziness, Denies otalgia, Denies headache(s), Reports nasal congestion, Denies neck pain, Denies odynophagia and Denies sore throat Card Denies chest pain, Denies rapid heart rate, Denies irregular heart rhythm, Denies palpitations and Denies dyspnea Resp Reports chest congestion (mild), Reports cough (recurrent; non-productive), Denies dyspnea and Denies wheezing GI Denies abdominal pain, Denies constipation, Denies dysphagia, Denies diarrhea, Denies nausea, Denies odynophagia and Denies vomiting Denies hematuria, Denies difficulty urinating, Denies dysuria and Denies urinary frequency Musc Reports back pain (recurrent, over the lower back), Reports arthralgias (affecting multiple joints) and Denies neck pain Skin/Breast Denies rash Neuro Denies dizziness, Denies headache(s) and Denies paresthesias Endo Denies fatigue and Denies palpitations Aller/Immun Denies wheezing Physical exam (Primary Care) Vital Signs: Last Vital Signs Pulse 94 11/02/23 10:33 BP 116/66 11/02/23 10:33 Pulse Ox 96 11/02/23 10:33 Oxygen Delivery Method Room Air 11/02/23 10:33 BMI result Body Mass Index 27.4 Tobacco/Smoking Status: Tobacco use Status Tobacco use date assessed 11/02/23 11/02/23 10:40 Patient Tobacco Use Status Current everyday Tobacco 11/02/23 10:40 Tobacco use type Cigarette 11/02/23 10:40 e-Cigarette/Vaping Use Never Used 11/02/23 10:40 Thrive Assessment: Date of Thrive Assessment Date Thrive assessed 10/05/23 11/02/23 10:40 Const General: no acute distress and alert HENMT Ears: TM's normal bilaterally and EAC's normal Throat: Yes posterior oropharynx normal and Yes tonsils normal Neck Neck: Yes no lymphadenopathy and Yes supple Thyroid: Thyroid normal Resp Auscultation: no crackles, no rales, rhonchi (scattered) throughout, no wheezes and bronchial breath sounds (occasional) Cardio Rate: regular rate Rhythm: regular rhythm Heart sounds: no murmurs GI Palpation (GI): Soft to palpation and nontender Auscultation: normal bowel sounds General: Yes no CVA tenderness Back/Spine/Pelvis Back: no CVA tenderness Thoracic/Lumbar Spine: lumbar spinal tenderness Skin Rashes: no rashes Extrem General: Yes no clubbing, cyanosis or edema Results AMB Hemoglobin A1c AMB Hemoglobin A1c 9.0 % Last Edit by JULES Schuler on 11/02/23 10:46 Results Reviewed Results Reviewed: Laboratory Last Values Hgb A1c (Clinic) 9.0 % (4.0-6.0) H 11/02/23 10:31 Assessment and Plan Assessment & Plan (1) Diabetes mellitus: Code(s): E11.9 - Type 2 diabetes mellitus without complications Qualifiers: Diabetes mellitus complication status: with hyperglycemia Diabetes mellitus intermediate manager insulin use: without retirement use Diabetes mellitus type: type 2 Qualified Code(s): E11.65 - Type 2 diabetes mellitus with hyperglycemia Plan: In-office HgbA1c done today is at 9.0% (was at 7.6% previously in July 2023) - goal is <7.0% Reinforced diabetic diet Continue Metformin ER 1000 mg BID, Januvia 100 mg QD and Glimepiride 2 mg Q AM Will start him additionally on PIoglitazone 30 mg QD (2) Mixed dyslipidemia: Code(s): E78.2 - Mixed hyperlipidemia Plan: Will recheck his fasting lipids YESICA - he was not able to get these done before today Reinforced low cholesterol diet Have emphasized to him again his increased risks of coronary or CV event more than average due to his diabetes and comorbidities Continue Atorvastatin 10 mg QD Will recheck his labs and fasting lipids again in 3 months for follow up (3) Vitamin D deficiency: Code(s): E55.9 - Vitamin D deficiency, unspecified Plan: Continue Vitamin D3 2000 units QD (4) Lumbar degenerative disc disease: Code(s): M51.36 - Other intervertebral disc degeneration, lumbar region Plan: Reinforced activity and weight-lifting restrictions Continue Gabapentin 800 mg TID and Percocet 5-325 mg QD PRN only for severe pain (5) Respiratory tract infection: Code(s): J98.8 - Other specified respiratory disorders Plan: Will start him empirically on Doxycycline 100 mg BID x 7 days Patient is advised to call if his symptoms progress or do not improve with empiric Abx Tx (6) Insomnia: Code(s): G47.00 - Insomnia, unspecified Qualifiers: Insomnia type: unspecified Qualified Code(s): G47.00 - Insomnia, unspecified Plan: Sleep hygiene reinforced (7) Smoker: Code(s): F17.200 - Nicotine dependence, unspecified, uncomplicated Plan: Counseled again on smoking cessation (8) Overweight (BMI 25.0-29.9): Code(s): E66.3 - Overweight Plan: Reinforced diet/exercise as tolerated/lose weight Plan Follow up in 3 months Orders: Orders AMB Hemoglobin A1c 11/01/24 E11.65 - Type 2 diabetes mellitus with hyperglycemia Hemoglobin A1c 3 Months E11.9 - Type 2 diabetes mellitus without complications Comprehensive [place]. Panel Fast 3 Months E78.00 - Pure hypercholesterolemia, unspecified Complete Blood Count Auto Diff 3 Months D64.9 - Anemia, unspecified Lipid Panel 3 Months E78.00 - Pure hypercholesterolemia, unspecified Medications: New doxycycline monohydrate 100 mg PO BID 14 caps 0RF 7 days pioglitazone 30 mg PO DAILY 30 tabs 3RF 30 days Coding Level of Care Code Est Pt Level 4 (38595) Diagnoses Type 2 diabetes mellitus with hyperglycemia, without long-term current use of insulin E11.65 Diabetes mellitus complication status: with hyperglycemia Diabetes mellitus retirement insulin use: without retirement use Diabetes mellitus type: type 2 Mixed dyslipidemia E78.2 Vitamin D deficiency E55.9 Lumbar degenerative disc disease M51.36 Respiratory tract infection J98.8 Insomnia, unspecified type G47.00 Insomnia type: unspecified Smoker F17.200 Overweight (BMI 25.0-29.9) E66.3
[2023-11-02 10:33] VITALS: BP 116/66; PULSE 94; O2SAT 96; BMI 27.4
== END 2023-11-02 11:27 | disposition home or self-care (01) ==
LOC: HO.HMGH 10:26
PROVIDERS: PCP Internal Medicine; Visit Provider Internal Medicine
DX: E11.65 Type 2 diabetes mellitus with hyperglycemia (principal)
CPT/HCPCS: 83036; 99214

== ENCOUNTER 2024-12-22 11:26 | Outpatient (AMB) | payer OTHER, SELFPAY ==
--- NOTE | 2024-12-22 11:29 | MHC.PC.OV ---
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 Accompanied by: Self / Same As Patient Allergies ibuprofen [From Motrin IB] Allergy (Mild, Verified 12/22/24 11:55) Nausea and Vomiting Medication List - Last Reconciled 12/22/24 by CRISTHIAN Mendoza albuterol sulfate 90 mcg/actuation 2 puffs PO QID PRN atorvastatin 10 mg PO DAILY blood sugar diagnostic bid blood-glucose meter test twice a day bupropion HCl XL 300 mg PO DAILY cholecalciferol (vitamin D3) (Vitamin D3) 50 mcg PO DAILY duloxetine 30 mg PO BID glimepiride 2 mg PO QAM 90 days lancets (BD Ultra-Fine II Lancets) twice a day metformin ER 1,000 mg (2 x 500 mg) PO BID oxycodone-acetaminophen 5-325 mg 1 tablet orally 1 to 2 times a day as needed only for severe pain 30 days pioglitazone 30 mg PO DAILY 30 days sitagliptin phosphate (Januvia) 100 mg PO DAILY trazodone 100 mg PO BEDTIME Tobacco use date assessed: 12/22/24 Dental Screening Dental Screen Date: 12/22/24 Did you have a dental visit in the last 12 months?: Yes Did you have a dental problem in the last 6 months where you did not have access to dental care?: No Was dental information given to patient?: Patient has dentist HPI 3 month f/u HPI Details increased glimepiride to 4 mg and pioglitazone to 45 mg daily a1c is 11 The patient asked if his pain medication could be increased from where it is right now. Discussed with patient that I have to get the ok from Dr. Astorga Lumbar tenderness wit palpation no chest pain, sob, heart palpitation no abdominal pain/change in bowel habits FORMERLY [facility], [facility]–1983 Medical History Otitis externa Overweight (BMI 25.0-29.9) Smoker Insomnia Right hydrocele Vitamin D deficiency Lumbar degenerative disc disease Mixed dyslipidemia Diabetes mellitus Surgical History History of surgery History of hydrocelectomy History of ear surgery History of extraction of renal calculus Family History Father Medical history unknown Mother Cancer Social History (Updated 12/22/24 @ 11:44 by Mel Hand CMA) Household Members: None Housing: Apartment Do you presently have visiting nurse or other home services: No Alcohol intake: former Patient Tobacco Use Status: Current everyday Tobacco user Tobacco use type: Cigarette Cigarette Packs Per Day: 0.25 Cigarettes Per Day: 5 Years Smoked: 20 e-Cigarette/Vaping Use: Never Used Second Hand Smoke Exposure: Yes service: No Current occupational status: retired Sexual orientation: Straight/Heterosexual Cognitive needs: No Hearing needs: Yes (Hearing aids) Vision needs: Yes (Glasses) Questionnaire PHQ-9 Over the last 2 weeks, how often have you been bothered by any of the following problems? 1. Little interest or pleasure in doing things: more than half the days 2. Feeling down, depressed, or hopeless: several days 3. Trouble falling or staying asleep, or sleeping too much: more than half the days 4. Feeling tired or having little energy: several days 5. Poor appetite or overeating: several days 6. Feeling bad about yourself - or that you are a failure or have let yourself or your family down: not at all 7. Trouble concentrating on things, such as reading the newspaper or watching television: more than half the days 8. Moving or speaking so slowly that other people could have noticed. Or the opposite - being so fidgety or restless that you have been moving around a lot more than usual: several days 9. Thoughts that you would be better off or of hurting yourself in some way: not at all Total score: 10 Depression Screening Interpretation: Positive Depression Screening Done: Yes 37498 - PHQ-9 Billing: Yes Source: Developed by Drs. Travis Davis, Nirmala Prieto, Tirso Quintana and colleagues, with an educational dino from [employer]. Thrive Questionnaire Date Thrive assessed: 12/22/24 I am a: Patient What is your living situation today?: I choose not to answer this question Within the past 12 months, did the food you bought not last and you didn't have the money to get more?: Often true Within the past 12 months, did you worry whether your food would run out before you got money to buy more?: Sometimes True Do you have trouble paying for medicines?: I choose not to answer this question Do you have trouble getting transportation to medical appointments?: No Do you have trouble paying your heating and electricity bill?: No Do you have trouble taking care of your child, family member or friend?: I choose not to answer this question Do you have trouble with day-to-day activities such as bathing, preparing meals, shopping, managing finances, etc.?: No Are you currently unemployed and looking for a job?: No Are you interested in more education?: No Please select the resources that you would like help with: None Currently or been in a relationship where the following occur: I choose not to answer THRIVE Score: 2 AUDIT C Alcohol Use Questionnaire (AUDIT-C) 1. How often do you have a drink containing alcohol?: Never Total Score: 0 Score Reviewed/Action Taken: No ED-7 AMB Questionnaire ED-7 Date ED - 7 assessed: 12/22/24 Feeling nervous, anxious, or on edge: 0 = Not at all Not being able to stop or control worryin = Not at all Worrying too much about different things: 0 = Not at all Trouble relaxin = Several days Being so restless that it is hard to sit still: 2 = More than half the days Becoming easily annoyed or irritable: 0 = Not at all Feeling afraid as if something awful might happen: 0 = Not at all Total ED-7 score (0-4 normal; 5-9 mild; 10-14 moderate; 15-21 severe): 3 Source: Developed by Drs. Travis Davis, Nirmala Prieto, Tirso Quintana and colleagues, with an educational dino from [employer]. ED-7 Assessment Billing ED-7 Assessment Tool: ED-7 Assessment 29796 Physical exam (Primary Care) Vital Signs: Last Vital Signs Temp 98.4 F 12/22/24 11:30 Pulse 103 H 12/22/24 11:30 Resp 20 12/22/24 11:30 BP 126/76 12/22/24 11:30 Pulse Ox 96 12/22/24 11:30 Oxygen Delivery Method Room Air 12/22/24 11:30 BMI result Body Mass Index 27.1 Tobacco/Smoking Status: Tobacco use Status Tobacco use date assessed 12/22/24 12/22/24 11:33 Patient Tobacco Use Status Current everyday Tobacco 12/22/24 11:44 Tobacco use type Cigarette 12/22/24 11:44 e-Cigarette/Vaping Use Never Used 12/22/24 11:44 PHQ-9: PHQ-9 Score PHQ-9: Total score 10 12/22/24 11:54 Depression Screening Interpretation: Positive Thrive Assessment: Date of Thrive Assessment Date Thrive assessed 12/22/24 12/22/24 11:33 Currently or been in a relationship where the following occur: I choose not to answer Results AMB Hemoglobin A1c AMB Hemoglobin A1c 11.3 % Last Edit by Mel Hand CMA on 12/22/24 11:56 Coding Additional Codes ED-7 Assessment Billing - DE-7 Assessment Tool: ED-7 Assessment 59759 ([id number]) PHQ-9 - 25865 - PHQ-9 Billing: Yes ([id number]) Assessment & Plan Assessment & Plan Orders: Orders AMB Hemoglobin A1c Today E11.65 - Type 2 diabetes mellitus with hyperglycemia Complete Blood Count Auto Diff Today E11.9 - Type 2 diabetes mellitus without complications, E78.2 - Mixed hyperlipidemia, F17.200 - Nicotine dependence, unspecified, uncomplicated, F32.9 - Major depressive disorder, single episode, unspecified, G47.00 - Insomnia, unspecified, H93.8X9 - Other specified disorders of ear, unspecified ear, J06.9 - Acute upper respiratory infection, unspecified, M47.816 - Spondylosis without myelopathy or radiculopathy, lumbar region, M51.36 - Other intervertebral disc degeneration, lumbar region, M54.9 - Dorsalgia, unspecified Comprehensive [place]. Panel Fast Today E11.9 - Type 2 diabetes mellitus without complications, E78.2 - Mixed hyperlipidemia, F17.200 - Nicotine dependence, unspecified, uncomplicated, F32.9 - Major depressive disorder, single episode, unspecified, G47.00 - Insomnia, unspecified, H93.8X9 - Other specified disorders of ear, unspecified ear, J06.9 - Acute upper respiratory infection, unspecified, M47.816 - Spondylosis without myelopathy or radiculopathy, lumbar region, M51.36 - Other intervertebral disc degeneration, lumbar region, M54.9 - Dorsalgia, unspecified Lipid Panel Today E11.9 - Type 2 diabetes mellitus without complications, E78.2 - Mixed hyperlipidemia, F17.200 - Nicotine dependence, unspecified, uncomplicated, F32.9 - Major depressive disorder, single episode, unspecified, G47.00 - Insomnia, unspecified, H93.8X9 - Other specified disorders of ear, unspecified ear, J06.9 - Acute upper respiratory infection, unspecified, M47.816 - Spondylosis without myelopathy or radiculopathy, lumbar region, M51.36 - Other intervertebral disc degeneration, lumbar region, M54.9 - Dorsalgia, unspecified TSH reflex Free T4 Today E11.9 - Type 2 diabetes mellitus without complications, E78.2 - Mixed hyperlipidemia, F17.200 - Nicotine dependence, unspecified, uncomplicated, F32.9 - Major depressive disorder, single episode, unspecified, G47.00 - Insomnia, unspecified, H93.8X9 - Other specified disorders of ear, unspecified ear, J06.9 - Acute upper respiratory infection, unspecified, M47.816 - Spondylosis without myelopathy or radiculopathy, lumbar region, M51.36 - Other intervertebral disc degeneration, lumbar region, M54.9 - Dorsalgia, unspecified UA CC w/rflx Micro + Cult Today E11.9 - Type 2 diabetes mellitus without complications, E78.2 - Mixed hyperlipidemia, F17.200 - Nicotine dependence, unspecified, uncomplicated, F32.9 - Major depressive disorder, single episode, unspecified, G47.00 - Insomnia, unspecified, H93.8X9 - Other specified disorders of ear, unspecified ear, J06.9 - Acute upper respiratory infection, unspecified, M47.816 - Spondylosis without myelopathy or radiculopathy, lumbar region, M51.36 - Other intervertebral disc degeneration, lumbar region, M54.9 - Dorsalgia, unspecified Vitamin D 25-OH Total Today E11.9 - Type 2 diabetes mellitus without complications, E78.2 - Mixed hyperlipidemia, F17.200 - Nicotine dependence, unspecified, uncomplicated, F32.9 - Major depressive disorder, single episode, unspecified, G47.00 - Insomnia, unspecified, H93.8X9 - Other specified disorders of ear, unspecified ear, J06.9 - Acute upper respiratory infection, unspecified, M47.816 - Spondylosis without myelopathy or radiculopathy, lumbar region, M51.36 - Other intervertebral disc degeneration, lumbar region, M54.9 - Dorsalgia, unspecified Medications: New glimepiride administer with breakfast 4 mg PO QAM 90 tabs 3RF blood-glucose meter ([email or web address] Verio Reflect Meter) As directed check blood three times a day 1 ea 0RF E11.65 - Type 2 diabetes mellitus with hyperglycemia pioglitazone 45 mg PO DAILY 90 tabs 3RF blood sugar diagnostic (OneTouch Verio test strips) As directed check blood sugar three times a day 100 ea 3RF E11.65 - Type 2 diabetes mellitus with hyperglycemia lancets As directed check blood sugar three times a day 100 ea 3RF E11.65 - Type 2 diabetes mellitus with hyperglycemia Refilled albuterol sulfate 90 mcg/actuation 2 puffs PO QID PRN 8.5 grams 3RF for wheezing Discontinued glimepiride Discontinued Reason: Doctor's Order 2 mg PO QAM 90 days 90 tabs 1RF E11.65 - Type 2 diabetes mellitus with hyperglycemia pioglitazone Discontinued Reason: Doctor's Order 30 mg PO DAILY 30 days 30 tabs 1RF
[2024-12-22 11:30] VITALS: BP 126/76; PULSE 103; RESP 20; TEMP 36.9; O2SAT 96; BMI 27.1
== END 2024-12-22 12:22 | disposition home or self-care (01) ==
LOC: HO.HMCH 11:26
PROVIDERS: PCP Internal Medicine
DX: E11.65 Type 2 diabetes mellitus with hyperglycemia (principal)

== ENCOUNTER → 2024-12-22 11:26 | Outpatient (BNVA) | payer OTHER, SELFPAY | PROVIDERS: PCP Internal Medicine | DX: E11.65 Type 2 diabetes mellitus with hyperglycemia (principal); G89.29 Other chronic pain; E78.2 Mixed hyperlipidemia; E66.3 Overweight; E55.9 Vitamin D deficiency, unspecified; G47.00 Insomnia, unspecified; F17.210 Nicotine dependence, cigarettes, uncomplicated; M51.360 Other intervertebral disc degeneration, lumbar region with discogenic back pain only; Z68.27 Body mass index [BMI] 27.0-27.9, adult | CPT/HCPCS: 83036; 96127; 99212 ==

== ENCOUNTER 2025-05-26 13:41 | Outpatient (AMB) | payer OTHER, SELFPAY ==
[2025-05-26 13:46] VITALS: BP 116/50; PULSE 95; RESP 18; O2SAT 97; BMI 27.9
--- NOTE | 2025-05-26 13:46 | MHC.PC.OV ---
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 Accompanied by: Self / Same As Patient Allergies ibuprofen (From Motrin IB) Allergy (Mild, Verified 05/26/25 13:48) Nausea and Vomiting Medication List - Last Reconciled 05/26/25 by CRISTHIAN Mendoza albuterol sulfate 90 mcg/actuation 2 puffs PO QID PRN atorvastatin 10 mg PO DAILY blood sugar diagnostic bid blood sugar diagnostic ([employer] Verio test strips) As directed check blood sugar three times a day blood-glucose meter test twice a day blood-glucose meter ([employer] Verio Reflect Meter) As directed check blood three times a day bupropion HCl XL 300 mg PO DAILY cholecalciferol (vitamin D3) (Vitamin D3) 50 mcg PO DAILY clotrimazole 1% 1 appl topical BID duloxetine 30 mg PO BID glimepiride 4 mg PO QAM lancets (BD Ultra-Fine II Lancets) twice a day lancets As directed check blood sugar three times a day metformin ER 1,000 mg (2 x 500 mg) PO BID nystatin 1 appl topical TID 10 days oxycodone-acetaminophen 5-325 mg 1 tablet orally 1 to 2 times a day as needed only for severe pain 30 days pioglitazone 45 mg PO DAILY sitagliptin phosphate (Januvia) 100 mg PO DAILY trazodone 100 mg PO BEDTIME Tobacco use date assessed: 05/26/25 Dental Screening Dental Screen Date: 05/26/25 Did you have a dental visit in the last 12 months?: Yes Did you have a dental problem in the last 6 months where you did not have access to dental care?: No Was dental information given to patient?: Patient has dentist HPI dm HPI Details The patient is a 54-year-old male presenting with concerns regarding diabetes management and chronic back pain. He reports feeling tired intermittently and experiencing elevated blood sugar levels. The patient acknowledges not having the necessary equipment at home to monitor blood sugar levels and is awaiting supplies to be reordered. His last visit was a substantial time ago, and he hasn't undergone recent blood work aside from A1c test done in the office today. The patient's chronic back pain is longstanding and reportedly worsening. He notes having a limited prescription of ten pain relief pills that is insufficient for his monthly requirements, impacting his pain management. He describes the pain as localized in the lower back, worsening in the mornings upon waking. Additional symptoms such as chest pain, shortness of breath, abdominal pain, or changes in bowel habits were denied. no chest pain, sob, heart palpitation no abdominal pain/change in bowel habits podiatry referral endocrinology referral for uncontrolled diabetes opththalmalogist [facility] Medical History Otitis externa Overweight (BMI 25.0-29.9) Smoker Insomnia Right hydrocele Vitamin D deficiency Lumbar degenerative disc disease Mixed dyslipidemia Diabetes mellitus Surgical History History of surgery History of hydrocelectomy History of ear surgery History of extraction of renal calculus Family History Father Medical history unknown Mother Cancer Social History Household Members: None Housing: Apartment Do you presently have visiting nurse or other home services: No Alcohol intake: former Patient Tobacco Use Status: Current everyday Tobacco user Tobacco use type: Cigarette Cigarette Packs Per Day: 0.25 Cigarettes Per Day: 5 Years Smoked: 20 e-Cigarette/Vaping Use: Never Used Second Hand Smoke Exposure: Yes service: No Current occupational status: retired Sexual orientation: Straight/Heterosexual Cognitive needs: No Hearing needs: Yes (Hearing aids) Vision needs: Yes (Glasses) Questionnaire Thrive Questionnaire Date Thrive assessed: 12/22/24 I am a: Patient What is your living situation today?: I choose not to answer this question Within the past 12 months, did the food you bought not last and you didn't have the money to get more?: Often true Within the past 12 months, did you worry whether your food would run out before you got money to buy more?: Sometimes True Do you have trouble paying for medicines?: I choose not to answer this question Do you have trouble getting transportation to medical appointments?: No Do you have trouble paying your heating and electricity bill?: No Do you have trouble taking care of your child, family member or friend?: I choose not to answer this question Do you have trouble with day-to-day activities such as bathing, preparing meals, shopping, managing finances, etc.?: No Are you currently unemployed and looking for a job?: No Are you interested in more education?: No Please select the resources that you would like help with: None Currently or been in a relationship where the following occur: I choose not to answer THRIVE Score: 2 ED-7 AMB Questionnaire ED-7 Date ED - 7 assessed: 12/22/24 Source: Developed by Drs. Travis Davis, Nirmala Prieto, Tirso Quintana and colleagues, with an educational dino from [employer]. Physical exam (Primary Care) Vital Signs: Last Vital Signs Pulse 95 05/26/25 13:46 Resp 18 05/26/25 13:46 BP 116/50 L 05/26/25 13:46 Pulse Ox 97 05/26/25 13:46 Oxygen Delivery Method Room Air 05/26/25 13:46 BMI result Body Mass Index 27.9 Tobacco/Smoking Status: Tobacco use Status Tobacco use date assessed 05/26/25 05/26/25 13:54 Patient Tobacco Use Status Current everyday Tobacco 05/26/25 13:47 Tobacco use type Cigarette 05/26/25 13:47 e-Cigarette/Vaping Use Never Used 05/26/25 13:47 Thrive Assessment: Date of Thrive Assessment Date Thrive assessed 12/22/24 05/26/25 13:47 Currently or been in a relationship where the following occur: I choose not to answer Results AMB Hemoglobin A1c AMB Hemoglobin A1c 9.6 % Last Edit by JULES Schuler on 05/26/25 14:48 Coding Assessment & Plan Assessment & Plan Orders: Orders Complete Blood Count Auto Diff 3 Months E11.9 - Type 2 diabetes mellitus without complications, E55.9 - Vitamin D deficiency, unspecified, E66.3 - Overweight, E78.2 - Mixed hyperlipidemia, F32.9 - Major depressive disorder, single episode, unspecified Comprehensive [place]. Panel Fast 3 Months E11.9 - Type 2 diabetes mellitus without complications, E55.9 - Vitamin D deficiency, unspecified, E66.3 - Overweight, E78.2 - Mixed hyperlipidemia, F32.9 - Major depressive disorder, single episode, unspecified AMB Hemoglobin A1c Today E11.65 - Type 2 diabetes mellitus with hyperglycemia, E11.9 - Type 2 diabetes mellitus without complications Hemoglobin A1c 3 Months E11.9 - Type 2 diabetes mellitus without complications, E55.9 - Vitamin D deficiency, unspecified, E66.3 - Overweight, E78.2 - Mixed hyperlipidemia, F32.9 - Major depressive disorder, single episode, unspecified Lipid Panel 3 Months E11.9 - Type 2 diabetes mellitus without complications, E55.9 - Vitamin D deficiency, unspecified, E66.3 - Overweight, E78.2 - Mixed hyperlipidemia, F32.9 - Major depressive disorder, single episode, unspecified TSH reflex Free T4 3 Months E11.9 - Type 2 diabetes mellitus without complications, E55.9 - Vitamin D deficiency, unspecified, E66.3 - Overweight, E78.2 - Mixed hyperlipidemia, F32.9 - Major depressive disorder, single episode, unspecified UA CC w/rflx Micro + Cult 3 Months E11.9 - Type 2 diabetes mellitus without complications, E55.9 - Vitamin D deficiency, unspecified, E66.3 - Overweight, E78.2 - Mixed hyperlipidemia, F32.9 - Major depressive disorder, single episode, unspecified Vitamin D 25-OH Total 3 Months E11.9 - Type 2 diabetes mellitus without complications, E55.9 - Vitamin D deficiency, unspecified, E66.3 - Overweight, E78.2 - Mixed hyperlipidemia, F32.9 - Major depressive disorder, single episode, unspecified Medications: New clotrimazole 1% 1 appl topical BID 30 grams 1RF Refilled nystatin 1 appl topical TID 10 days 60 grams 3RF nystatin 1 appl topical TID 60 grams 3RF 10 days sitagliptin phosphate (Januvia) 100 mg PO DAILY 90 tabs 3RF oxycodone-acetaminophen 5-325 mg 1 tablet orally 1 to 2 times a day as needed only for severe pain 10 tabs 0RF pain 30 days
== END 2025-05-26 14:31 | disposition home or self-care (01) ==
LOC: HO.HMCH 13:41
PROVIDERS: PCP Internal Medicine
DX: E11.9 Type 2 diabetes mellitus without complications (principal); E11.65 Type 2 diabetes mellitus with hyperglycemia

== ENCOUNTER → 2025-05-26 13:41 | Outpatient (BNVA) | payer OTHER, SELFPAY | PROVIDERS: PCP Internal Medicine | DX: E11.65 Type 2 diabetes mellitus with hyperglycemia (principal); M54.9 Dorsalgia, unspecified; G89.29 Other chronic pain; E78.2 Mixed hyperlipidemia; E55.9 Vitamin D deficiency, unspecified; G47.00 Insomnia, unspecified; M51.360 Other intervertebral disc degeneration, lumbar region with discogenic back pain only; E66.3 Overweight; F17.210 Nicotine dependence, cigarettes, uncomplicated; Z68.27 Body mass index [BMI] 27.0-27.9, adult | CPT/HCPCS: 83036; 99212 ==